=== PATIENT | female | born 1965 | race Caucasian/White ===

== ENCOUNTER 2017-08-27 08:10 | Outpatient (CLI) | payer OTHER ==
--- NOTE | 2017-08-27 11:49 | ULT ---
RENAL ULTRASOUND WITH DUPLEX EVALUATION: INDICATIONS: Chronic kidney disease and hypertension. FINDINGS: The right kidney measures 9.1 x 4.8 x 4.3 cm. The right renal cortex measures 1.1 cm. The right kid naty is diffusely echogenic. The left kidney measures 10.8 x 5.7 x 4.5 cm. The left renal cortex measures 1.7 cm. The left kidne y is diffusely echogenic. The peak systolic velocity in the right renal artery is 22.8 cm per second. The peak systolic veloci ty in the left renal artery is 29.4 cm per second. The peak systolic velocity in the aorta is 27.8 c m per second. The right renal artery to aorta ratio is 0.82. The left renal artery to aorta ratio is 1.06. The resistive index in the arcuate artery of the right kidney is 0.74 and the left is 0.70. The visualized bladder is normal appearing. IMPRESSION: 1. Increased echogenicity in both kidneys, which can be seen with acute medical renal disease. 2. No focal renal lesion or hydronephrosis. 3. No sonographic evidence of renal artery stenosis. POS: [facility]
--- NOTE | 2017-08-27 11:59 | ULT ---
ADDENDUM: Please see the renal ultrasound for details concerning the renal duplex evaluation. POS: [facility]
== END 2017-08-27 08:11 | disposition home or self-care (01) ==
LOC: ULT 08:10
PROVIDERS: ATTEND Internal Medicine Nephrology
DX: I12.9 Hypertensive chronic kidney disease with stage 1 through stage 4 chronic kidney disease, or unspecified chronic kidney disease (principal); N18.3 Chronic kidney disease, stage 3 (moderate)
CPT/HCPCS: 76700; 76770

== ENCOUNTER 2018-08-21 10:41 | Outpatient (CLI) | payer OTHER ==
--- NOTE | 2018-08-21 13:31 | ULT ---
BILATERAL UPPER EXTREMITY VENOUS DOPPLER ULTRASOUND FOR DIALYSIS ACCESS: Date: 08/20/18 HISTORY: End-stage renal disease. FINDINGS: RIGHT UPPER EXTREMITY: The right cephalic vein measures 2.6 mm in the proximal arm, 3.4 mm in the mid arm, 3.6 mm in the dis tasia arm, 3.0 mm in the antecubital fossa, 1.9 mm in the proximal forearm, 2.0 mm in the mid forearm, and 1.2 mm in the distal forearm. The right basilic vein measures 3.1 mm in the proximal arm, 3.7 mm in the mid arm, 2.5 mm in the dist al arm, 3.4 mm in the antecubital fossa, 1.2 mm in the proximal forearm, 0.8 mm in the mid forearm, a nd 0.6 mm in the distal forearm. The right brachial artery measures 4.9 mm, radial artery measures 2.5 mm, and ulnar artery measures 2 .2 mm. LEFT UPPER EXTREMITY: The left cephalic vein measures 4.5 mm in the proximal arm, 5.2 mm in the mid arm, 4.3 mm in the dist al arm, 5.7 mm in the antecubital fossa, 4.5 mm in the proximal forearm, 0.5 mm in the mid forearm, a nd 0.8 mm in the distal forearm. The left basilic vein measures 2.6 mm in the proximal arm, 1.9 mm in the mid arm, 1.7 mm in the dista l arm, 1.6 mm in the antecubital fossa, 1.7 mm in the proximal forearm, 1.2 mm in the mid forearm, an d 1.4 mm in the distal forearm. The left brachial artery measures 5.4 mm, radial artery measures 2.6 mm, and ulnar artery measures 2. [address] mm[address] POS: [facility]
== END 2018-08-21 10:42 | disposition home or self-care (01) ==
LOC: SCSULT 10:41
PROVIDERS: ATTEND Internal Medicine Nephrology
DX: Z01.818 Encounter for other preprocedural examination (principal); I12.0 Hypertensive chronic kidney disease with stage 5 chronic kidney disease or end stage renal disease; N18.5 Chronic kidney disease, stage 5
CPT/HCPCS: 93970; G0365

== ENCOUNTER 2018-09-04 11:56 | Outpatient (CLI) | payer OTHER ==
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
[2018-09-04 14:09] LABS: #Basophils 0.1 thou/uL (0.0-0.2); #Eosinphils 0.6 thou/uL (0.0-0.7); #Lymphocytes 1.9 thou/uL (1.20-3.40); #Monocytes 0.5 thou/uL (0.11-0.59); #Neutrophils 3.9 thou/uL (1.40-6.50); %Basophils 1.2 % (0.0-1.0); %Eosinophils 9.1 % (0.0-10.0); %Lymphocytes 26.7 % (21.0-51.0); %Monocytes 7.4 % (0.0-10.0); %Neutrophils 55.6 % (42.0-75.0); Hemoglobin 11.1 g/dL (12.0-16.0); Mean Corpuscular HGB CONC 33.9 g/dL (32.0-36.0); Mean Corpuscular Hemoglobin 32.4 pg (27.0-31.0); Mean Corpuscular Volume 95.5 fL (78.0-98.0); Mean Platelet Volume 7.1 fL (7.4-10.4); Platelet Count 150 thou/uL (130-400); RBC Distribution Width 12.2 % (11.5-14.5); Red Blood Cell (RBC) Count 3.43 mill/uL (4.20-5.40)
[2018-09-04 14:37] LABS: Anion Gap 12 mmol/L (10-20); BUN (Urea Nitrogen) 71 mg/dL (9.8-20.1); Calc. Creatinine Clearance 0 mL/min (70-130); Calcium 9.3 mg/dL (7.8-10.44); Carbon Dioxide 20 mmol/L (22-29); Chloride 111 mmol/L (98-107); Estimated GFR-MDRD 11; Glucose 94 mg/dL (70-105); Potassium 4.4 mmol/L (3.5-5.1); Sodium 139 mmol/L (136-145)
--- NOTE | 2018-09-04 21:30 | EKG ---
Test Reason : Blood Pressure : / mmHG Vent. Rate : 055 BPM Atrial Rate : 055 BPM P-R Int : 186 ms QRS Dur : 092 ms QT Int : 454 ms P-R-T Axes : 056 043 045 degrees QTc Int : 434 ms Sinus bradycardia with marked sinus arrhythmia Otherwise normal ECG No previous ECGs available Confirmed by DR. Braydon ECHEVARRIA MD ([id number]) on 09/04/2018 9:30:00 PM Referred By: NAUN Confirmed By:DR. Braydon ECHEVARRIA MD
== END 2018-09-04 11:57 | disposition home or self-care (01) ==
LOC: LABBT 11:56
PROVIDERS: ATTEND Specialist
DX: Z01.818 Encounter for other preprocedural examination (principal); K42.9 Umbilical hernia without obstruction or gangrene; N18.9 Chronic kidney disease, unspecified
CPT/HCPCS: 80048; 85025; 93005; 93010

== ENCOUNTER 2018-09-10 10:36 | Day surgery (SDC) | payer OTHER ==
[2018-09-04 12:20] VITALS: BMI 36.0
[2018-09-10] MEDS ORDERED: Ondansetron PF 4 MG/2 ML Vial ONE (13:58)
[2018-09-10] MEDS ORDERED: Dexamethasone 20 MG/5 ML VIAL ONE (13:58)
[2018-09-10] MEDS ORDERED: Glycopyrrolate 0.2 MG/ML 5 ML SYRINGE ONE (13:58)
[2018-09-10] MEDS ORDERED: Lidocaine 1% PF 5 ML VIAL ONE (13:58)
[2018-09-10] MEDS ORDERED: PROPOFOL 200 MG/20 ML VIAL ONE (13:58)
[2018-09-10] MEDS ORDERED: Rocuronium Bromide 10 MG/ML (10ML VIAL) ONE (13:58)
[2018-09-10] MEDS ORDERED: Heparin 10,000 UNITS/ 10 ML VIAL ONE (13:58)
[2018-09-10] MEDS ORDERED: Bupivacaine HCl 0.5%/Epinephrine 1:200,000/PF 30 ml Vial ONE (15:40)
[2018-09-10] MEDS ORDERED: Protamine Sulfate 250 MG/25 ML VIAL ONE (15:40)
[2018-09-10] MEDS ORDERED: Protamine Sulfate 50 MG/5 ML VIAL ONE (15:40)
[2018-09-10] MEDS ORDERED: Heparin 5,000 UNITS/ML VIAL ONE (15:40)
[2018-09-10] MEDS ORDERED: Bupivacaine/Epinephrine 0.25% 30 ML VIAL ONE ×2 (15:40→16:45)
[2018-09-10] MEDS ORDERED: Heparin 10,000 UNITS/1 ML VIAL ONE ×2 (15:40→16:45)
[2018-09-10] MEDS ORDERED: Lidocaine 2% PF 5 ML VIAL ONE (15:40)
[2018-09-10] MEDS ORDERED: Fentanyl 100 MCG/2 ML VIAL ONE (16:38)
[2018-09-10] MEDS ORDERED: hydrALAZINE 20 MG/ML VIAL ONE (18:52)
[2018-09-10] MEDS ORDERED: Promethazine HCl 25 MG/ML VIAL ONE (20:00)
[2018-09-10] MEDS ORDERED: HYDROcodone/Acetaminophen 5/325 mg Tablet ONE (20:31)
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
== END 2018-09-10 21:15 | disposition home or self-care (01) ==
LOC: SDC 10:36
PROVIDERS: ATTEND Specialist
PROC: 0WQF0ZZ Repair Abdominal Wall, Open Approach (ICD-10-PCS; principal; 2018-09-10)
PROC: 0XJ Anatomical Regions, Upper Extremities, Inspection (ICD-10-PCS; principal; 2018-09-10)
PROC: 0WHG43Z Insertion of Infusion Device into Peritoneal Cavity, Percutaneous Endoscopic Approach (ICD-10-PCS; principal; 2018-09-10)
DX: I12.9 Hypertensive chronic kidney disease with stage 1 through stage 4 chronic kidney disease, or unspecified chronic kidney disease (principal); N18.9 Chronic kidney disease, unspecified; K43.2 Incisional hernia without obstruction or gangrene; Z79.899 Other long term (current) drug therapy; Z88.2 Allergy status to sulfonamides
CPT/HCPCS: J0131; J0360; J0670; J1100; J1644; J2001; J2405; J2550; J2704; J2720; J3010

== ENCOUNTER 2018-10-16 09:13 | Day surgery (SDC) | payer OTHER ==
[2018-10-15 16:43] VITALS: BMI 38.5
[2018-10-16] MEDS ORDERED: Bupivacaine/Epinephrine 0.25% 30 ML VIAL ONE (10:28)
[2018-10-16] MEDS ORDERED: Lidocaine 2% PF 5 ML VIAL ONE (10:28)
[2018-10-16] MEDS ORDERED: Heparin 10,000 UNITS/1 ML VIAL ONE (10:28)
[2018-10-16] MEDS ORDERED: Bupivacaine HCl 0.5%/Epinephrine 1:200,000/PF 30 ml Vial ONE (10:28)
[2018-10-16 10:53] LABS: #Basophils 0.1 thou/uL (0.0-0.2); #Eosinphils 0.4 thou/uL (0.0-0.7); #Lymphocytes 1.4 thou/uL (1.20-3.40); #Monocytes 0.5 thou/uL (0.11-0.59); #Neutrophils 3.2 thou/uL (1.40-6.50); %Basophils 1.4 % (0.0-1.0); %Eosinophils 7.4 % (0.0-10.0); %Lymphocytes 25.8 % (21.0-51.0); %Monocytes 8.3 % (0.0-10.0); %Neutrophils 57.2 % (42.0-75.0); Hemoglobin 11.2 g/dL (12.0-16.0); Mean Corpuscular HGB CONC 35.2 g/dL (32.0-36.0); Mean Corpuscular Hemoglobin 33.3 pg (27.0-31.0); Mean Corpuscular Volume 94.5 fL (78.0-98.0); Mean Platelet Volume 7.2 fL (7.4-10.4); Platelet Count 143 thou/uL (130-400); RBC Distribution Width 12.4 % (11.5-14.5); Red Blood Cell (RBC) Count 3.36 mill/uL (4.20-5.40); White Blood Cell (WBC) Count 5.6 thou/uL (4.8-10.8)
[2018-10-16 11:15] LABS: Anion Gap 17 mmol/L (10-20); BUN (Urea Nitrogen) 92 mg/dL (9.8-20.1); Calc. Creatinine Clearance 23 mL/min (70-130); Calcium 9.4 mg/dL (7.8-10.44); Carbon Dioxide 21 mmol/L (22-29); Chloride 107 mmol/L (98-107); Estimated GFR-MDRD 9; Glucose 103 mg/dL (70-105); Potassium 3.7 mmol/L (3.5-5.1); Sodium 141 mmol/L (136-145)
[2018-10-16] MEDS ORDERED: Fentanyl 100 MCG/2 ML VIAL ONE ×3 (11:51→13:46)
[2018-10-16] MEDS ORDERED: SUGAMMADEX SODIUM 500 MG/5 ML VIAL ONE (12:50)
[2018-10-16] MEDS ORDERED: Acetaminophen/Codeine 30-300mg Tablet ONE (14:52)
--- NOTE | 2018-10-16 15:05 | OP ---
DATE OF PROCEDURE: 10/16/2018 PREOPERATIVE DIAGNOSES: End-stage renal disease, maturing left arm fistula, cephalic vein upper, obesity, dysfunctional peritoneal dialysis catheter with extensive adhesions from prior surgery, dysfunctional peritoneal dialysis catheter. POSTOPERATIVE DIAGNOSES: End-stage renal disease, maturing left arm fistula, cephalic vein upper, obesity, dysfunctional peritoneal dialysis catheter with extensive adhesions from prior surgery, dysfunctional peritoneal dialysis catheter. PROCEDURE PERFORMED: Laparoscopic evaluation of peritoneal dialysis catheter with revision of peritoneal dialysis catheter laparoscopically with pexy of peritoneal dialysis catheter in the right lower quadrant. ANESTHESIA: General, local 0.5% Marcaine with epinephrine 30 mL with 2% Xylocaine 10 mL, 30 mL mixture used. FINDINGS: The patient had extensive adhesions as was noted when the peritoneal dialysis catheter was placed. PD catheter is surrounded by extensive small bowel and colon adhesions, upper abdominal extensive adhesions. I had to negotiate adhesions in the omentum to visualize the right lower quadrant as I did before. The PD catheter was caught up into some fatty tissue. It was relocated and pexied, but if further problems occur and it does not function, it will have to be removed and she will have to move to hemodialysis. DESCRIPTION OF PROCEDURE: The patient was taken to the operating room, where under general anesthesia, abdomen was clipped of hair, prepared with ChloraPrep and draped in routine fashion. Left lateral subcostal incision made through the old port site and pneumoperitoneum to 15 mmHg obtained with a Veress needle, replaced with a 5 port laparoscope inserted. There were extensive omental adhesions. I was able to negotiate through these to visualize an opening in the right lower quadrant as I did before. The PD catheter had loculated out laterally. There were extensive omental and small bowel adhesions to the abdominal wall and these were not taken down. An open area in the right lower quadrant, under direct laparoscopic visualization, another incision made and a 5 port placed and PD catheter brought out of its loculated fatty collection in the right lateral pelvis upper and placed into the pelvis, and then transabdominal wall fixation suture used to pexy the catheter toward the right pelvis. The left pelvis was frozen with adhesions. I then flushed the catheter with heparinized saline solution and flushed well. Pneumoperitoneum reduced. All instruments were removed. All skin incisions were approximated with subdermal 4-0 Monocryl and [place] glue applied. If this catheter does not function well, it will have to be removed, and the patient will have to move towards hemodialysis. Job ID: [id number]
[2018-10-16] MEDS ORDERED: Ondansetron PF 4 MG/2 ML Vial ONE (16:42)
[2018-10-16] MEDS ORDERED: Metoprolol Tartrate 5 MG/5 ML VIAL ONE (16:42)
[2018-10-16] MEDS ORDERED: Rocuronium Bromide 10 MG/ML (10ML VIAL) ONE (16:42)
[2018-10-16] MEDS ORDERED: Glycopyrrolate 0.2 MG/ML 5 ML SYRINGE ONE (16:42)
[2018-10-16] MEDS ORDERED: Lidocaine 1% PF 5 ML VIAL ONE (16:42)
[2018-10-16] MEDS ORDERED: Dexamethasone 20 MG/5 ML VIAL ONE (16:42)
[2018-10-16] MEDS ORDERED: PROPOFOL 200 MG/20 ML VIAL ONE (16:42)
== END 2018-10-16 15:15 | disposition home or self-care (01) ==
LOC: SDC 09:13
PROVIDERS: ATTEND Specialist
PROC: 0JWT33Z Revision of Infusion Device in Trunk Subcutaneous Tissue and Fascia, Percutaneous Approach (ICD-10-PCS; principal; 2018-10-16)
DX: T85.691A Other mechanical complication of intraperitoneal dialysis catheter, initial encounter (principal); I12.0 Hypertensive chronic kidney disease with stage 5 chronic kidney disease or end stage renal disease; N18.6 End stage renal disease; K66.0 Peritoneal adhesions (postprocedural) (postinfection); E66.9 Obesity, unspecified; Z68.38 Body mass index [BMI] 38.0-38.9, adult; Z99.2 Dependence on renal dialysis; Z91.048 Other nonmedicinal substance allergy status; Z88.2 Allergy status to sulfonamides; Z79.899 Other long term (current) drug therapy
CPT/HCPCS: 36415; 80048; 85025; C1769; J0670; J0690; J1100; J1644; J2001; J2405; J2704; J3010

== ENCOUNTER 2019-03-11 13:32 | Inpatient (IN) | payer OTHER, MEDICARE ==
[2019-03-11] MEDS ORDERED: Cefepime 1 GM VIAL ONE (14:49)
[2019-03-11] MEDS ORDERED: Vancomycin HCl 1.5 GM in Sodium Chloride 0.9% 250 ML 300 ML IVPB SCH ×2 (15:00→21:45)
[2019-03-11 15:22] LABS: Lactic Acid 2.7 mmol/L (0.5-2.2)
--- NOTE | 2019-03-11 15:46 | RAD ---
PA AND LATERAL CHEST: 03/11/19 HISTORY: Cough and fever. Heart size and mediastinum are within normal limits. The lungs are clear of infiltrates. No significa nt bony findings. IMPRESSION: No active intrathoracic disease. POS: [facility]
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
[2019-03-11] MEDS ORDERED: Aluminum & Magnesium Hydroxide 60 ML, Lidocaine 2% Viscous Solution 30 ML, diphenhydrAM... SSW PRN (18:09)
[2019-03-11] MEDS ORDERED: HYDROcodone/Acetaminophen 5/325 mg Tablet PO PRN (18:12)
[2019-03-11] MEDS ORDERED: Ondansetron PF 4 MG/2 ML Vial IVP PRN (18:12)
[2019-03-11] MEDS ORDERED: Acetaminophen 650 MG Suppository PR PRN (18:12)
[2019-03-11] MEDS ORDERED: Acetaminophen 325 MG TAB PO PRN (18:12)
[2019-03-11] MEDS ORDERED: Ondansetron ODT 4 MG TAB PO PRN (18:12)
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
[2019-03-11] MEDS ORDERED: Benzonatate 100 MG CAP PO SCH (18:45)
[2019-03-11] MEDS ORDERED: FLU VACC QS2019-20(6MOS UP)/PF 60 MCG/0.5 ML SYRINGE IM ONE (19:00)
[2019-03-11] MEDS: Cepastat Lozenges 1 LOZ PO PRN (20:47)
[2019-03-11] MEDS: Benzonatate 100 MG CAP PO SCH (20:47)
[2019-03-11] MEDS: Famotidine/PF 20 mg/2ml Vial SLOW IVP SCH (20:48)
[2019-03-11 20:52] VITALS: BMI 36.5
[2019-03-11] MEDS ORDERED: HOLD VANCOMYCIN FOR LEVEL >20 FS SCH (21:45)
[2019-03-11] MEDS ORDERED: Vancomycin HCl 1 GM in Premix Bag 1 BAG IVPB SCH (21:45)
[2019-03-11] MEDS ORDERED: Vancomycin HCl 1.25 GM in Sodium Chloride 0.9% 250 ML 250 ML IVPB SCH (21:45)
[2019-03-11] MEDS ORDERED: Vancomycin HCl 750 MG in Sodium Chloride 0.9% 250 ML 250 ML IVPB SCH (21:45)
[2019-03-12 06:43] LABS: Anion Gap 9 mmol/L (10-20); BUN (Urea Nitrogen) 30 mg/dL (9.8-20.1); Calc. Creatinine Clearance 33 mL/min (70-130); Calcium 7.9 mg/dL (7.8-10.44); Carbon Dioxide 28 mmol/L (22-29); Chloride 105 mmol/L (98-107); Estimated GFR-MDRD 14; Glucose 91 mg/dL (70-105); Potassium 3.4 mmol/L (3.5-5.1); Sodium 139 mmol/L (136-145)
[2019-03-12 06:49] LABS: #Eosinphils 0.2 thou/uL (0.0-0.7); #Lymphocytes 3.1 thou/uL (1.20-3.40); #Monocytes 0.8 thou/uL (0.11-0.59); #Neutrophils 2.2 thou/uL (1.40-6.50); %Basophils 0.2 % (0.0-1.0); %Eosinophils 2.8 % (0.0-10.0); %Lymphocytes 49.2 % (21.0-51.0); %Monocytes 12.1 % (0.0-10.0); %Neutrophils 35.7 % (42.0-75.0); Hemoglobin 10.1 g/dL (12.0-16.0); Mean Corpuscular HGB CONC 34.7 g/dL (32.0-36.0); Mean Corpuscular Hemoglobin 33.2 pg (27.0-31.0); Mean Corpuscular Volume 95.8 fL (78.0-98.0); Mean Platelet Volume 6.4 fL (7.4-10.4); Platelet Count 109 thou/uL (130-400); Platelet Morphology Comment Appears Decreased; RBC Distribution Width 13.2 % (11.5-14.5); Red Blood Cell (RBC) Count 3.05 mill/uL (4.20-5.40); White Blood Cell (WBC) Count 6.3 thou/uL (4.8-10.8)
[2019-03-12] MEDS: Benzonatate 100 MG CAP PO SCH ×3 (08:40→20:43)
--- NOTE | 2019-03-12 09:27 | PDOC.HOSPP ---
- Subjective Encounter Date: 03/12/19 Encounter Time: 09:26 Subjective: generalized abd discomfort, no nausea, vomiting - Objective Vital Signs & Weight: Vital Signs (12 hours) Temp Pulse Resp BP Pulse Ox 03/12/19 07:14 80 16 96 03/12/19 05:34 98.1 F 89 19 156/89 H 98 03/12/19 01:37 84 16 95 03/11/19 23:55 97.6 F 84 19 96/55 L 95 03/11/19 22:03 80 16 95 Weight Weight 240 lb I&O: 03/11/19 03/12/19 03/13/19 06:59 06:59 06:59 Intake Total 510 Balance 510 Result Diagrams: 03/12/19 06:04 03/12/19 06:04 Hospitalist ROS - Medication Medications: Active Medications Generic Name Dose Route Start Last Admin Trade Name Freq PRN Reason Stop Dose Admin Acetaminophen 650 mg 03/11/19 18:12 03/11/19 20:47 Tylenol PO 650 mg Q4H PRN Administration Headache/Fever/Mild Pain (1-3) Albuterol/Ipratropium 3 ml 03/11/19 18:30 03/12/19 07:14 Duoneb NEB 3 ml [id number] [place] Administration Benzonatate 100 mg 03/11/19 21:00 03/12/19 08:40 Tessalon PO 100 mg TID [place] Administration Famotidine 20 mg 03/11/19 21:00 03/11/19 20:48 Pepcid SLOW IVP 20 mg 2100 [place] Administration Throat Lozenges 1 naa 03/11/19 18:09 03/11/19 20:47 Cepastat Lozenges PO 1 naa Q2H PRN Administration Sore Throat - Exam Eye: anicteric sclera Neck: no JVD Heart: RRR, no murmur Respiratory: CTAB Gastrointestinal: normal bowel sounds, tender to palpation Extremities: no edema Hosp A/P (1) SBP (spontaneous bacterial peritonitis) Code(s): K65.2 - SPONTANEOUS BACTERIAL PERITONITIS Status: Acute (2) Sepsis Code(s): A41.9 - SEPSIS, UNSPECIFIED ORGANISM Status: Acute Qualifiers: Sepsis type: Streptococcus, unspecified Sepsis acute organ dysfunction status: without acute organ dysfunction Qualified Code(s): A40.9 - Streptococcal sepsis, unspecified (3) Lactic acidosis Code(s): E87.2 - ACIDOSIS Status: Acute (4) Abdominal pain Code(s): R10.9 - UNSPECIFIED ABDOMINAL PAIN Status: Acute Qualifiers: Abdominal location: generalized Qualified Code(s): R10.84 - Generalized abdominal pain (5) ESRD on peritoneal dialysis Code(s): N18.6 - END STAGE RENAL DISEASE; Z99.2 - DEPENDENCE ON RENAL DIALYSIS Status: Chronic (6) Hypertension Code(s): I10 - ESSENTIAL (PRIMARY) HYPERTENSION Status: Chronic - Plan dialysis per renal cont iv antibx pending culture selected home meds ddiscuss with renal
[2019-03-12] MEDS ORDERED: Calcitriol 0.25 MCG CAP PO SCH (09:30)
[2019-03-12] MEDS: Cepastat Lozenges 1 LOZ PO PRN (10:05)
--- NOTE | 2019-03-12 11:39 | PRG ---
DATE OF SERVICE: 03/12/2019 SUBJECTIVE: This is a 53-year-old lady, being seen for end-stage renal disease. The patient denied nausea, vomiting, or chest pain. OBJECTIVE: GENERAL: The patient is awake and alert. VITAL SIGNS: Pulse 99, breathing 16, blood pressure 156/89. GENERAL APPEARANCE AND MENTAL STATUS: Fair. HEAD/NECK: Normocephalic. Atraumatic. EYES: EOMI. No deformity. EARS: Clear. No ulcers. NOSE: Intact. No lesions. MOUTH: Clear. No discharge. THROAT: Clear. No exudate. LUNGS: Clear. No crackles. CARDIAC: S1, S2. No rub. ABDOMEN: Benign. Bowel sounds positive. GENITALIA/RECTUM: Bower absent. BACK/EXTREMITIES: Edema 0+. NEUROLOGICAL: Alert and motor intact. SKIN: LYMPHATICS: LABORATORY DATA: Reviewed. ASSESSMENT AND PLAN: 1. Stage 6 chronic kidney disease. Continue peritoneal dialysis. 2. Hypertension. 3. Anemia, stable. 4. Peritonitis, cultures are pending. Job ID: [id number]
[2019-03-12] MEDS: Cefepime 0.5 GM, Admixture Fee 1 EACH in Sodium Chloride 0.9% 50 ML IVPB SCH (16:08)
[2019-03-12] MEDS: Guaifenesin DM 100-10/5 ML UDCUP PO PRN ×2 (16:35→23:48)
[2019-03-12] MEDS ORDERED: Prevnar 13-Val Conj/PF 0.5 ML SYRINGE IM ONE (17:00)
[2019-03-12] MEDS: cloNIDine 0.1 MG TAB PO SCH (20:42)
[2019-03-12] MEDS: Carvedilol 6.25 MG TAB PO SCH (20:42)
[2019-03-12] MEDS: Famotidine/PF 20 mg/2ml Vial SLOW IVP SCH (20:43)
[2019-03-12] MEDS ORDERED: ISOSORB DINIT PO SCH (21:00)
[2019-03-12] MEDS ORDERED: HYDRALAZINE HCL PO SCH (21:00)
[2019-03-12] MEDS ORDERED: Non-Formulary Item 1 EACH (Isosorb Dinit/Hydralazine Hcl [Bidil] 1 TABLET) PO SCH (21:00)
[2019-03-12] MEDS ORDERED: Non-Formulary Item 1 EACH (Carvedilol [Carvedilol] 12.5 MG) PO SCH (21:00)
[2019-03-13] MEDS: Folic Acid/Vit B Comp W-C PO SCH (06:52)
[2019-03-13] MEDS ORDERED: Folic Acid/Vit B Comp W-C PO SCH (07:30)
[2019-03-13] MEDS ORDERED: Calcitriol 0.25 MCG CAP PO SCH (09:00)
[2019-03-13] MEDS: Benzonatate 100 MG CAP PO SCH ×3 (09:12→21:27)
[2019-03-13] MEDS: cloNIDine 0.1 MG TAB PO SCH ×2 (09:13→21:36)
[2019-03-13] MEDS: Torsemide 20 MG TAB PO SCH (09:15)
[2019-03-13] MEDS: Citalopram 20 MG TAB PO SCH (09:15)
[2019-03-13] MEDS: Carvedilol 6.25 MG TAB PO SCH ×2 (09:17→21:36)
--- NOTE | 2019-03-13 11:04 | PRG ---
DATE OF SERVICE: 03/13/2019 SUBJECTIVE: A 53-year-old female being seen for end-stage renal disease. The patient denied nausea, vomiting or chest pain. OBJECTIVE: See above. The patient is awake and alert. VITAL SIGNS: Afebrile, pulse 68, breathing 16, blood pressure 147/95. GENERAL APPEARANCE AND MENTAL STATUS: Fair. HEAD/NECK: Normocephalic. Atraumatic. EYES: EOMI. No deformity. EARS: Clear. No ulcers. NOSE: Intact. No lesions. MOUTH: Clear. No discharge. THROAT: Clear. No exudate. LUNGS: Clear. No crackles. CARDIAC: S1, S2. No rub. ABDOMEN: Benign. Bowel sounds positive. GENITALIA/RECTUM: Bower absent. BACK/EXTREMITIES: Edema 0+. NEUROLOGICAL: Alert and motor intact. SKIN: LYMPHATICS: LABORATORY DATA: Reviewed. ASSESSMENT AND PLAN: 1. Stage 6 chronic kidney disease. Continue peritoneal dialysis. 2. Hypertension, stable. 3. Anemia, stable. 4. Medication based on GFR appropriate. Job ID: [id number]
--- NOTE | 2019-03-13 11:40 | PDOC.HOSPP ---
- Subjective Encounter Date: 03/13/19 Encounter Time: 11:39 Subjective: 53 y/o female with ESRD on PD admitted due to worsening abdominal pain associated with fever and generalised ill feeling. Also has been having cough for some time prior to presentation.Feeling better. Cough has subsided. - Objective Vital Signs & Weight: Vital Signs (12 hours) Temp Pulse Resp BP BP BP Pulse Ox 03/13/19 10:42 68 14 99 03/13/19 09:17 147/95 H 03/13/19 09:13 147/95 H 03/13/19 08:00 97.7 F 68 18 142/86 H 99 03/13/19 07:21 75 16 98 03/13/19 04:00 98.2 F 74 20 130/80 97 03/13/19 00:00 98.4 F 81 20 135/87 97 Weight Weight 240 lb I&O: 03/12/19 03/13/19 03/14/19 06:59 06:59 06:59 Intake Total 510 240 Balance 510 240 Result Diagrams: 03/12/19 06:04 03/12/19 06:04 Hospitalist ROS - Medication Medications: Active Medications Generic Name Dose Route Start Last Admin Trade Name Freq PRN Reason Stop Dose Admin Acetaminophen 650 mg 03/11/19 18:12 03/11/19 20:47 Tylenol PO 650 mg Q4H PRN Administration Headache/Fever/Mild Pain (1-3) Albuterol/Ipratropium 3 ml 03/11/19 18:30 03/13/19 10:42 Duoneb NEB 3 ml [id number] [place] Administration Benzonatate 100 mg 03/11/19 21:00 03/13/19 09:12 Tessalon PO 100 mg TID [place] Administration Calcitriol 0.25 mcg 03/13/19 09:00 03/13/19 09:13 Rocaltrol PO 0.25 mcg [id number] [place] Administration Carvedilol 12.5 mg 03/12/19 21:00 03/13/19 09:17 Coreg PO 12.5 mg BID [place] Administration Citalopram Hydrobromide 20 mg 03/13/19 09:00 03/13/19 09:15 Celexa PO 20 mg DAILY [place] Administration Clonidine 0.1 mg 03/12/19 21:00 03/13/19 09:13 Catapres PO 0.1 mg BID [place] Administration Famotidine 20 mg 03/11/19 21:00 03/12/19 20:43 Pepcid SLOW IVP 20 mg 2100 [place] Administration Guaifenesin/Dextromethorphan 15 ml 03/11/19 18:12 03/12/19 23:48 Robitussin Dm PO 15 ml Q4H PRN Administration Cough Cefepime HCl 0.5 gm/ 50 mls @ 100 mls/hr 03/12/19 15:00 03/12/19 16:08 Miscellaneous Medication 1 IVPB 50 mls each/ Sodium Chloride 1500 [place] Administration Throat Lozenges 1 naa 03/11/19 18:09 03/12/19 10:05 Cepastat Lozenges PO 1 naa Q2H PRN Administration Sore Throat Torsemide 40 mg 03/13/19 09:00 03/13/19 09:15 Demadex PO 40 mg DAILY [place] Administration Vitamin B Complex/Vit C/Folic Acid 1 tab 03/13/19 07:30 03/13/19 06:52 Nephro-Hiro Tablet PO 1 tab DAILY-AC [place] Administration - Exam General Appearance: awake alert Eye: anicteric sclera ENT: normocephalic atraumatic Neck: supple, symmetric Heart: RRR, no murmur Respiratory: CTAB, no wheezes, no rales, no ronchi, normal chest expansion Gastrointestinal: soft, non-distended, normal bowel sounds Extremities: no cyanosis, no edema Neurological: cranial nerve grossly intact, no focal deficits Psychiatric: normal affect, A&O x 3 Hosp A/P (1) Peritonitis associated with peritoneal dialysis Status: Acute (2) Abdominal pain Code(s): R10.9 - UNSPECIFIED ABDOMINAL PAIN Status: Acute Qualifiers: Abdominal location: generalized Qualified Code(s): R10.84 - Generalized abdominal pain (3) Cough Code(s): R05 - COUGH Status: Acute (4) Sepsis Code(s): A41.9 - SEPSIS, UNSPECIFIED ORGANISM Status: Acute Qualifiers: Sepsis type: Streptococcus, unspecified Sepsis acute organ dysfunction status: without acute organ dysfunction Qualified Code(s): A40.9 - Streptococcal sepsis, unspecified (5) ESRD on peritoneal dialysis Code(s): N18.6 - END STAGE RENAL DISEASE; Z99.2 - DEPENDENCE ON RENAL DIALYSIS Status: Chronic - Plan Continue broad spectrum antibiotics await peritneal fluid culture Analgesic as needed. PD as per reducing machine operator
[2019-03-13] MEDS ORDERED: Heparin 10,000 UNITS/ 10 ML VIAL FS SCH (11:45)
[2019-03-13] MEDS ORDERED: Isosorbide Dinitrate 20 MG TAB PO SCH (12:00)
[2019-03-13] MEDS ORDERED: hydrALAZINE 25 MG TAB PO SCH (12:00)
[2019-03-13] MEDS: Cefepime 0.5 GM, Admixture Fee 1 EACH in Sodium Chloride 0.9% 50 ML IVPB SCH (14:30)
[2019-03-13 15:24] LABS: Vancomycin, Random 14.5 ug/mL (See Comment)
[2019-03-13] MEDS: Famotidine/PF 20 mg/2ml Vial SLOW IVP SCH (21:29)
[2019-03-13] MEDS: hydrALAZINE 25 MG TAB PO SCH (21:37)
[2019-03-13] MEDS: Isosorbide Dinitrate 20 MG TAB PO SCH (21:37)
[2019-03-14] MEDS: Gentamicin TOPICAL Ointment 0.1% 15 gm Tube TOP SCH ×2 (02:03→21:30)
[2019-03-14] MEDS: Folic Acid/Vit B Comp W-C PO SCH (06:46)
[2019-03-14 07:59] LABS: Albumin 2.8 g/dL (3.5-5.0); Anion Gap 12 mmol/L (10-20); BUN (Urea Nitrogen) 24 mg/dL (9.8-20.1); BUN/Creatinine Ratio 7.02; Calc. Creatinine Clearance 32 mL/min (70-130); Calcium 7.7 mg/dL (7.8-10.44); Carbon Dioxide 26 mmol/L (22-29); Chloride 102 mmol/L (98-107); Estimated GFR-MDRD 14; Glucose 99 mg/dL (70-105); Phosphorus 3.7 mg/dL (2.3-4.7); Potassium 3.5 mmol/L (3.5-5.1); Sodium 136 mmol/L (136-145)
[2019-03-14 08:09] LABS: Eosinophils 3 % (0-10); Hemoglobin 9.9 g/dL (12.0-16.0); Lymphocytes 64 % (21-51); MDiff Complete? YES; Mean Corpuscular HGB CONC 34.4 g/dL (32.0-36.0); Mean Corpuscular Volume 93.2 fL (78.0-98.0); Mean Platelet Volume 5.9 fL (7.4-10.4); Monocytes 8 % (0-10); Neutrophil 25 % (42-75); Platelet Count 130 thou/uL (130-400); RBC Distribution Width 12.9 % (11.5-14.5); Red Blood Cell (RBC) Count 3.09 mill/uL (4.20-5.40); White Blood Cell (WBC) Count 5.7 thou/uL (4.8-10.8)
[2019-03-14] MEDS: Carvedilol 6.25 MG TAB PO SCH ×2 (08:31→21:34)
[2019-03-14] MEDS: cloNIDine 0.1 MG TAB PO SCH ×2 (08:31→21:32)
[2019-03-14] MEDS: Benzonatate 100 MG CAP PO SCH ×3 (08:31→21:31)
[2019-03-14] MEDS: Isosorbide Dinitrate 20 MG TAB PO SCH ×2 (08:32→21:33)
[2019-03-14] MEDS: hydrALAZINE 25 MG TAB PO SCH ×2 (08:32→21:32)
[2019-03-14] MEDS: Citalopram 20 MG TAB PO SCH (08:32)
[2019-03-14] MEDS: Guaifenesin DM 100-10/5 ML UDCUP PO PRN ×2 (08:35→16:32)
[2019-03-14] MEDS: Torsemide 20 MG TAB PO SCH (11:08)
--- NOTE | 2019-03-14 11:44 | PRG ---
DATE OF SERVICE: 03/14/2019 SUBJECTIVE: This is a 53-year-old female being seen for end-stage renal disease. The patient denied nausea, vomiting, or chest pain. OBJECTIVE: See above. The patient is awake and alert, in no acute distress. VITAL SIGNS: Pulse 84, breathing 16, blood pressure 130/70. GENERAL APPEARANCE AND MENTAL STATUS: Fair. HEAD/NECK: Normocephalic. Atraumatic. EYES: EOMI. No deformity. EARS: Clear. No ulcers. NOSE: Intact. No lesions. MOUTH: Clear. No discharge. THROAT: Clear. No exudate. LUNGS: Clear. No crackles. CARDIAC: S1, S2. No rub. ABDOMEN: Benign. Bowel sounds positive. GENITALIA/RECTUM: Bower absent. BACK/EXTREMITIES: Edema 0+. NEUROLOGICAL: Alert and motor intact. SKIN: LYMPHATICS: LABORATORY DATA: Labs reviewed. ASSESSMENT AND PLAN: 1. Stage 6 chronic kidney disease. Continue peritoneal dialysis. 2. Hypertension, stable. 3. Anemia, stable. 4. Peritonitis, probably Pasteurella. I would recommend ID consultation. Job ID: [id number]
[2019-03-14] MEDS ORDERED: Amoxicillin/Potassium Clav 250 MG TAB PO SCH ×2 (12:00→23:00)
[2019-03-14] MEDS: Cefepime 0.5 GM, Admixture Fee 1 EACH in Sodium Chloride 0.9% 50 ML IVPB SCH (17:11)
[2019-03-14] MEDS ORDERED: Heparin 1,000 UNITS/ML (10 ml) 6,000 UNITS in PERITON.DIALYSIS 7-2.5 % DEXTR 6,000 ML FS SCH (18:15)
--- NOTE | 2019-03-14 21:12 | PDOC.HOSPP ---
- Subjective Encounter Date: 03/14/19 Encounter Time: 21:00 Subjective: The patient continues to complain of a dry cough. She states that robitussin may have helped some, but cough occurs in any position. She feels tickling sensation in her throat and scratchy feeling. No abdominal pain. She has had no relief with breathing treatment and wants them discontinued Her abdominal pain has now resolved with antibiotics. She plans on having her dogs sleep outside and maybe getting rid of one of her pets. - Objective Vital Signs & Weight: Vital Signs (12 hours) Temp Pulse Resp BP Pulse Ox 03/14/19 20:00 98.8 F 78 18 146/91 H 97 03/14/19 18:49 86 16 98 03/14/19 14:32 79 16 97 03/14/19 10:31 84 16 96 Weight Weight 240 lb I&O: 03/13/19 03/14/19 03/15/19 06:59 06:59 06:59 Intake Total 1080 1080 Balance 1080 1080 Result Diagrams: 03/14/19 07:20 03/14/19 07:20 Hospitalist ROS - Review of Systems Constitutional: denies: chills, sweats Respiratory: denies: shortness of breath Cardiovascular: denies: chest pain, palpitations Gastrointestinal: denies: vomiting - Medication Medications: Active Medications Generic Name Dose Route Start Last Admin Trade Name Freq PRN Reason Stop Dose Admin Acetaminophen 650 mg 03/11/19 18:12 03/11/19 20:47 Tylenol PO 650 mg Q4H PRN Administration Headache/Fever/Mild Pain (1-3) Benzonatate 100 mg 03/11/19 21:00 03/14/19 16:29 Tessalon PO 100 mg TID [place] Administration Calcitriol 0.25 mcg 03/13/19 09:00 03/13/19 09:13 Rocaltrol PO 0.25 mcg [id number] [place] Administration Carvedilol 12.5 mg 03/12/19 21:00 03/14/19 08:31 Coreg PO 12.5 mg BID [place] Administration Citalopram Hydrobromide 20 mg 03/13/19 09:00 03/14/19 08:32 Celexa PO 20 mg DAILY [place] Administration Clonidine 0.1 mg 03/12/19 21:00 03/14/19 08:31 Catapres PO 0.1 mg BID [place] Administration Hydralazine HCl 37.5 mg 03/13/19 21:00 03/14/19 08:32 Apresoline PO 37.5 mg BID [place] Administration Isosorbide Dinitrate 20 mg 03/13/19 21:00 03/14/19 08:32 Isordil PO 20 mg BID [place] Administration Sodium Chloride 10 ml 03/11/19 18:12 03/14/19 08:33 Flush - Normal Saline IVF 10 ml Q12HR PRN Administration Saline Flush Throat Lozenges 1 naa 03/11/19 18:09 03/12/19 10:05 Cepastat Lozenges PO 1 naa Q2H PRN Administration Sore Throat Torsemide 40 mg 03/13/19 09:00 03/14/19 11:08 Demadex PO Not Given DAILY [place] Vitamin B Complex/Vit C/Folic Acid 1 tab 03/13/19 07:30 03/14/19 06:46 Nephro-Hiro Tablet PO 1 tab DAILY-AC [place] Administration - Exam Eye: PERRL, anicteric sclera ENT: normocephalic atraumatic, no oropharyngeal lesions Neck: no JVD Heart: RRR, no murmur, no gallops Respiratory: CTAB, no wheezes, no rales Gastrointestinal: soft, non-tender, non-distended Gastrointestinal - other findings: Peritoneal catheter dialyisis in place, no purulence noted Extremities: no cyanosis, no clubbing, no edema Skin: normal turgor, no lesions, no rashes Neurological: cranial nerve grossly intact, normal sensation to touch, no weakness, no focal deficits, no new deficit Musculoskeletal: normal tone, normal strength Hosp A/P - Plan This is a 53 year old female on peritoneal dialysis secondary to longstanding hypertension presenting with fevers, dry cough, found to have pasteurella in peritoneal dialysis catheter Sepsis secondary to SBP from Pasteurella multicoda -was on vanc, cefepime for two days, now switching to augmentin D1 03/13. Will continue for two weeks on discharge. - patient told to avoid doing peritoneal dialysis near her pets Hypertension - continue clonidine, imdur, coreg, torsemide Chronic anemia - Hb 9.9, continue B12, folate, nephro outpatient follow up Dry cough - chest X ray unremarkable - will d/c famotidine, dry omeprazole and tums prn - d/c breathing treatments and mucinex since no relief Code status: full code
[2019-03-14] MEDS: Famotidine/PF 20 mg/2ml Vial SLOW IVP SCH (21:17)
[2019-03-14] MEDS ORDERED: Isosorbide Dinitrate 20 MG TAB PO SCH (21:45)
[2019-03-14] MEDS ORDERED: hydrALAZINE 25 MG TAB PO SCH (21:45)
[2019-03-14] MEDS: Calcium Carbonate 500 MG ChewTAB PO PRN (23:16)
[2019-03-15] MEDS: Folic Acid/Vit B Comp W-C PO SCH (06:42)
[2019-03-15] MEDS: Calcium Carbonate 500 MG ChewTAB PO PRN (06:45)
[2019-03-15 07:18] VITALS: TEMP 98.3
[2019-03-15 07:37] LABS: Hemoglobin 10.5 g/dL (12.0-16.0); Mean Corpuscular HGB CONC 34.3 g/dL (32.0-36.0); Mean Corpuscular Volume 96.4 fL (78.0-98.0); Mean Platelet Volume 5.8 fL (7.4-10.4); Platelet Count 128 thou/uL (130-400); Red Blood Cell (RBC) Count 3.18 mill/uL (4.20-5.40); White Blood Cell (WBC) Count 5.6 thou/uL (4.8-10.8)
[2019-03-15 07:51] LABS: Anion Gap 12 mmol/L (10-20); BUN (Urea Nitrogen) 23 mg/dL (9.8-20.1); Calc. Creatinine Clearance 30 mL/min (70-130); Calcium 8.3 mg/dL (7.8-10.44); Carbon Dioxide 25 mmol/L (22-29); Chloride 105 mmol/L (98-107); Estimated GFR-MDRD 13; Glucose 103 mg/dL (70-105); Potassium 3.7 mmol/L (3.5-5.1); Sodium 138 mmol/L (136-145)
[2019-03-15] MEDS: Benzonatate 100 MG CAP PO SCH (08:39)
[2019-03-15] MEDS: Citalopram 20 MG TAB PO SCH (08:39)
[2019-03-15] MEDS: Torsemide 20 MG TAB PO SCH (08:40)
[2019-03-15] MEDS: cloNIDine 0.1 MG TAB PO SCH (08:40)
[2019-03-15] MEDS: Carvedilol 6.25 MG TAB PO SCH (08:45)
[2019-03-15] MEDS ORDERED: Isosorbide Dinitrate 20 MG TAB PO SCH (09:00)
[2019-03-15] MEDS ORDERED: hydrALAZINE 25 MG TAB PO SCH (09:00)
[2019-03-15] MEDS ORDERED: Amoxicillin/Potassium Clav 250 MG TAB PO SCH (09:00)
[2019-03-15] MEDS ORDERED: Amlodipine 5 MG TAB PO SCH (09:45)
[2019-03-15 10:09] VITALS: BP 118/73
--- NOTE | 2019-03-15 12:24 | PRG ---
DATE OF SERVICE: 03/15/2019 SUBJECTIVE: This is a 53-year-old lady being seen for end-stage renal disease. She denies nausea, vomiting, or chest pain. OBJECTIVE: CONSTITUTIONAL: Awake, alert, in no acute distress. VITAL SIGNS: Pulse 82, breathing 16, blood pressure 118/73. GENERAL APPEARANCE AND MENTAL STATUS: Fair. HEAD/NECK: Normocephalic. Atraumatic. EYES: EOMI. No deformity. EARS: Clear. No ulcers. NOSE: Intact. No lesions. MOUTH: Clear. No discharge. THROAT: Clear. No exudate. LUNGS: Clear. No crackles. CARDIAC: S1, S2. No rub. ABDOMEN: Benign. Bowel sounds positive. GENITALIA/RECTUM: Bower absent. BACK/EXTREMITIES: Edema 0+. NEUROLOGICAL: Alert and motor intact. SKIN: LYMPHATICS: LABORATORY DATA: Reviewed. ASSESSMENT AND PLAN: 1. Stage 6 chronic kidney disease. Plan peritoneal dialysis daily. 2. Hypertension, stable. 3. Anemia, stable. 4. Medication based on GFR appropriate. 5. Peritonitis, management per primary team. 6. Fibrin clots. We will use heparin during peritoneal dialysis. The nurse was informed at [facility]. Job ID: [id number]
== END 2019-03-15 14:23 | disposition home or self-care (01) | DRG 919 ==
LOC: ERS 13:32 → T4-B 16:01
PROVIDERS: ADMIT Internal Medicine; ATTEND Internal Medicine
PROC: 3E1M39Z Irrigation of Peritoneal Cavity using Dialysate, Percutaneous Approach (ICD-10-PCS; principal; 2019-03-14)
DX: T85.71XA Infection and inflammatory reaction due to peritoneal dialysis catheter, initial encounter (principal); K65.2 Spontaneous bacterial peritonitis; N18.6 End stage renal disease; A40.9 Streptococcal sepsis, unspecified; A28.0 Pasteurellosis; I12.0 Hypertensive chronic kidney disease with stage 5 chronic kidney disease or end stage renal disease; Y84.1 Kidney dialysis as the cause of abnormal reaction of the patient, or of later complication, without mention of misadventure at the time of the procedure; Z99.2 Dependence on renal dialysis; D64.9 Anemia, unspecified; E05.90 Thyrotoxicosis, unspecified without thyrotoxic crisis or storm; Z90.721 Acquired absence of ovaries, unilateral; Z85.41 Personal history of malignant neoplasm of cervix uteri
CPT/HCPCS: 36415; 71046; 80048; 80069; 80202; 83605; 85025; 85027; 87040; 87070; 87077; 87186; 87205; 87633; 87804; 94640; 96365; 96375; J0692; J1644; J3370; J7050; J7620; S0028

== ENCOUNTER 2019-05-25 05:54 | Day surgery (SDC) | payer OTHER, MEDICARE ==
[2019-05-22 10:50] VITALS: BMI 39.1
--- NOTE | 2019-05-22 12:13 | HP ---
HISTORY OF PRESENT ILLNESS: Melva Lima is a 53-year-old female, lives in [place], has peritoneal dialysis. She has never had a hemodialysis catheter. On 09/10/2018, I placed a laparoscopic peritoneal dialysis catheter, left arm fistula, perforating branch antecubital vein to the proximal radial artery, outflow cephalic and basilic vein, all the cephalic vein was larger. Exploration of left wrist revealed the cephalic vein at the wrist to be too small. The patient had some problems with drainage of her catheter and on 10/16/2018, she underwent laparoscopic evaluation of her PD catheter with a pexy suture to hold the catheter in the right lower quadrant, she had some adhesions in the left. This catheter seemed to function well until the last few weeks when she was not draining as much fluid and having some abdominal discomfort. Abdominal x-ray obtained revealed the peritoneal dialysis catheter to have migrated in the right upper pelvis. As the patient is only draining 1153-9170 mL out of the 2 L and having discomfort, plan is to laparoscopically reposition that and evaluate it, plan this under general anesthesia. She should be able postprocedural to avoid peritoneal dialysis for 3 days and do low volume after that and thus avoid hemodialysis catheter. In fact, she has a functional left upper arm fistula that could be accessed before having to place a catheter. This fistula in her left arm has never been accessed. It has good thrill and bruit and a good cephalic vein outflow signal, upper arm, left. PRIMARY CARE PHYSICIAN: Dr. Chan. PARACHUTE CROWN SEWER: Dr. Neely. MEDICATIONS: 1. Carvedilol. 2. Isosorbide. 3. Torsemide. 4. Vascepa. 5. . 6. Clonidine. 7. Isosorbide dinitrate. 8. Z-Raffy. PAST MEDICAL HISTORY: End-stage renal disease, on peritoneal dialysis. Hypertension, undergoing transplant evaluation, morbid obesity, 37. PAST SURGICAL HISTORY: Laparoscopic peritoneal dialysis catheter placement and revision, September and October 2018. Left arm fistula, September 2018. TOBACCO: None. ALCOHOL: None. ALLERGIES: NONE. PHYSICAL EXAMINATION: VITAL SIGNS: Weight 150 pounds, height 68 inches, 38 BMI, blood pressure 148/66, pulse 74, temperature 96.6 degrees. HEAD, EARS EYES, NOSE AND THROAT: Unremarkable. LUNGS: Clear to auscultation. CARDIAC: Regular rate and rhythm without murmur or gallop. ABDOMEN: Soft and nontender. Left lower quadrant peritoneal dialysis catheter exit site normal. EXTREMITIES: Left upper arm fistula, good thrill and bruit. Extremities are unremarkable. ASSESSMENT AND PLAN: 1. End-stage renal disease, on peritoneal dialysis. She has never undergone hemodialysis. She has a functional fistula that could be accessed if necessary. Her peritoneal dialysis catheter is not optimally functional and plan is to laparoscopically evaluate that as described above with postoperative dialysis plans as described above. 2. Functional left arm fistula, use it for dialysis if necessary to avoid the catheter. 3. Hypertension. 4. Morbid obesity, metabolic syndrome, undergoing transplant evaluation. She is 250 pounds, 38 BMI and she is interested in a sleeve gastrectomy. We will inform her of our bariatric procedures, seminar, web site and she will start that process and follow up with me regarding bariatric surgery in the future. Job ID: [id number]
[2019-05-25] MEDS ORDERED: Fentanyl 100 MCG/2 ML VIAL ONE ×2 (06:54→09:00)
[2019-05-25] MEDS ORDERED: Midazolam HCl 2 mg/2 ml Vial ONE (06:54)
[2019-05-25] MEDS ORDERED: Lidocaine 2% w/Epinephrine 1:200K 20 ML VIAL ONE (06:58)
[2019-05-25] MEDS ORDERED: Bupivacaine 0.25% HCL 30 ML VIAL ONE (06:58)
[2019-05-25] MEDS ORDERED: EPINEPHrine 1 MG/ML AMP ONE (06:59)
[2019-05-25] MEDS ORDERED: Lidocaine 2% PF 5 ML VIAL ONE (06:59)
[2019-05-25 07:04] LABS: #Basophils 0.1 thou/uL (0.0-0.2); #Eosinphils 0.4 thou/uL (0.0-0.7); #Lymphocytes 2.7 thou/uL (1.20-3.40); #Monocytes 0.6 thou/uL (0.11-0.59); #Neutrophils 2.6 thou/uL (1.40-6.50); %Basophils 1.1 % (0.0-1.0); %Eosinophils 5.9 % (0.0-10.0); %Lymphocytes 42.1 % (21.0-51.0); %Monocytes 9.7 % (0.0-10.0); %Neutrophils 41.2 % (42.0-75.0); Hemoglobin 11.8 g/dL (12.0-16.0); Mean Corpuscular HGB CONC 34.8 g/dL (32.0-36.0); Mean Corpuscular Hemoglobin 35.2 pg (27.0-31.0); Mean Platelet Volume 6.2 fL (7.4-10.4); Platelet Count 148 thou/uL (130-400); RBC Distribution Width 14.5 % (11.5-14.5); Red Blood Cell (RBC) Count 3.35 mill/uL (4.20-5.40); White Blood Cell (WBC) Count 6.3 thou/uL (4.8-10.8)
[2019-05-25 07:20] LABS: Anion Gap 15 mmol/L (10-20); BUN (Urea Nitrogen) 47 mg/dL (9.8-20.1); Calc. Creatinine Clearance 29 mL/min (70-130); Calcium 9.2 mg/dL (7.8-10.44); Carbon Dioxide 24 mmol/L (22-29); Chloride 105 mmol/L (98-107); Estimated GFR-MDRD 12; Glucose 107 mg/dL (70-105); Potassium 4.4 mmol/L (3.5-5.1); Sodium 140 mmol/L (136-145)
[2019-05-25] MEDS ORDERED: Heparin 10,000 UNITS/1 ML VIAL ONE (08:10)
[2019-05-25] MEDS ORDERED: SUGAMMADEX SODIUM 200 MG/2 ML VIAL ONE (08:12)
--- NOTE | 2019-05-25 11:25 | OP ---
DATE OF PROCEDURE: 05/25/2019 PREOPERATIVE DIAGNOSES: 1. End-stage renal disease. 2. Peritoneal dialysis catheter dysfunction. 3. Adhesions from prior surgery. 4. Midline incision. POSTOPERATIVE DIAGNOSES: 1. End-stage renal disease. 2. Peritoneal dialysis catheter dysfunction. 3. Adhesions from prior surgery. 4. Midline incision. PROCEDURES PERFORMED: 1. Laparoscopic evaluation of peritoneal dialysis catheter, finding it to be located in the upper right pelvis with adhesions in the left pelvis and some adhesions to a lesser degree of right pelvis. 2. Laparoscopic placement of nonabsorbable suture to direct the catheter in the right pelvis. ANESTHESIA: General and local with 0.5% Marcaine 30 mL, mixed with 1% Xylocaine with epinephrine 30 mL. DESCRIPTION OF PROCEDURE: The patient was taken to the operating room, where under general anesthesia, abdomen was prepared with ChloraPrep and draped in routine fashion. Catheter was also prepared. Left lateral subcostal incision was made. Pneumoperitoneum to 15 mmHg was obtained with Veress needle, replaced with a 5 port. There were adhesions present in the midline and inferior towards the pelvis. Adhesion free area was noted in the left lateral mid abdomen and a 5 port placed under laparoscopic visualization. Adhesiolysis was carried out. Careful dissection, freeing omental adhesions, fatty adhesions from the anterior abdominal wall, mid abdomen inferiorly, and freeing these, visualizing the peritoneal dialysis catheter, which was located in the right upper pelvis. A sling suture previously placed was intact, but had become slightly loosens as it eroded through the subcutaneous tissues. PD catheter was flushed. It was patent. Fibrinous debris flushed out easily. Adhesiolysis was undertaken, freeing the right pelvis, directing the catheter in the right pelvis, securing it with another sling suture of 0 Ethibond. GraNee needle transabdominal wall fixation suture used. It was snug. It was flushed with heparinized saline solution, 1000 units of heparin per mL, 10 mL. Good hemostasis noted. If this peritoneal dialysis catheter does not function well, she may not have optimal return, but if it functions, that may be acceptable for her to enable peritoneal dialysis. Pneumoperitoneum was reduced. All instruments were removed. All skin incisions were approximated with interrupted subdermal 4-0 Monocryl and [place] glue applied. Job ID: [id number]
--- NOTE | 2019-05-25 15:24 | EKG ---
Test Reason : PREOP Blood Pressure : / mmHG Vent. Rate : 069 BPM Atrial Rate : 069 BPM P-R Int : 180 ms QRS Dur : 088 ms QT Int : 430 ms P-R-T Axes : 051 015 047 degrees QTc Int : 460 ms Normal sinus rhythm Normal ECG Confirmed by WILMER GALEANA ([id number]) on 05/25/2019 3:24:09 PM Referred By: NAUN Confirmed By:WILMER GALEANA
== END 2019-05-25 10:50 | disposition home or self-care (01) ==
LOC: SDC 05:54
PROVIDERS: ATTEND Specialist
PROC: 0DNU4ZZ Release Omentum, Percutaneous Endoscopic Approach (ICD-10-PCS; principal; 2019-05-25)
DX: T85.691A Other mechanical complication of intraperitoneal dialysis catheter, initial encounter (principal); I12.0 Hypertensive chronic kidney disease with stage 5 chronic kidney disease or end stage renal disease; N18.6 End stage renal disease; E66.01 Morbid (severe) obesity due to excess calories; Z68.39 Body mass index [BMI] 39.0-39.9, adult; Z79.899 Other long term (current) drug therapy; Z88.2 Allergy status to sulfonamides; Z88.1 Allergy status to other antibiotic agents; Z91.041 Radiographic dye allergy status; Z91.048 Other nonmedicinal substance allergy status; Z99.2 Dependence on renal dialysis
CPT/HCPCS: 80048; 85025; 93005; 93010; J0171; J0690; J1644; J2001; J2250; J3010; S0020

== ENCOUNTER 2019-05-26 07:35 | Inpatient (IN) | payer OTHER, MEDICARE ==
[2019-05-26] MEDS ORDERED: Ondansetron PF 4 MG/2 ML Vial ONE (07:58)
[2019-05-26] MEDS ORDERED: Fentanyl 100 MCG/2 ML VIAL ONE (07:58)
[2019-05-26 08:17] LABS: #Lymphocytes 1.8 thou/uL (1.20-3.40); #Monocytes 0.6 thou/uL (0.11-0.59); %Basophils 0.2 % (0.0-1.0); %Eosinophils 0.2 % (0.0-10.0); %Lymphocytes 19.1 % (21.0-51.0); %Monocytes 6.8 % (0.0-10.0); %Neutrophils 73.7 % (42.0-75.0); Mean Corpuscular HGB CONC 34.8 g/dL (32.0-36.0); Mean Corpuscular Hemoglobin 35.4 pg (27.0-31.0); Mean Platelet Volume 6.5 fL (7.4-10.4); Platelet Count 207 thou/uL (130-400); RBC Distribution Width 14.8 % (11.5-14.5); Red Blood Cell (RBC) Count 2.53 mill/uL (4.20-5.40); White Blood Cell (WBC) Count 9.5 thou/uL (4.8-10.8)
[2019-05-26 08:37] LABS: ALT (SGPT) 20 U/L (8-55); AST (SGOT) 19 U/L (5-34); Albumin 3.7 g/dL (3.5-5.0); Alkaline Phosphatase 57 U/L (40-110); Anion Gap 17 mmol/L (10-20); BUN (Urea Nitrogen) 56 mg/dL (9.8-20.1); Bilirubin, Total 0.4 mg/dL (0.2-1.2); CK (CPK) 55 U/L (29-168); Calc. Creatinine Clearance 0 mL/min (70-130); Calcium 8.4 mg/dL (7.8-10.44); Carbon Dioxide 20 mmol/L (22-29); Chloride 104 mmol/L (98-107); Estimated GFR-MDRD 9; Globulin 2.4 g/dL (2.4-3.5); Glucose 157 mg/dL (70-105); Lipase 42 U/L (8-78); Potassium 4.8 mmol/L (3.5-5.1); Protein, Total 6.1 g/dL (6.0-8.3); Sodium 136 mmol/L (136-145)
--- NOTE | 2019-05-26 08:57 | CT ---
Exam: ABDOMEN CT WITHOUT CONTRAST PELVIC CT WITHOUT CONTRAST: COMPARISON: 05/12/2018 HISTORY: Replacement of peritoneal dialysis catheter. Pain. FINDINGS: Abdomen CT: Dependent atelectatic changes in the lung bases. Additional areas of consolidation in both lower lob es may represent atelectasis, pneumonia or aspiration. Heart is enlarged. There is a small amount of pericardial fluid. Limited evaluation of the solid organs by the lack of IV contrast. Grossly no solid organ abnormality . There is evidence of perihepatic and perisplenic fluid. Fluid tracks along both paracolic gutters. Additional patchy areas of intra-abdominal fluid are noted. There are small pockets of intra peritoneal air. There is also evidence of air in the anterior subcutaneous fat associated with the ventral abdominal wall hernias containing mesentery. No evidence of bowel herniation. Bilateral renal cortical atrophy. No evidence of obstructive uropathy. Atherosclerosis in a nonaneurysmal aorta. Pelvic CT: Free fluid in the pelvis likely due to peritoneal dialysis. Uterus appears to be surgically absent. H ypodensity in the right hemipelvis may represent a 2.1 x 2.1 cyst, possibly of ovarian origin. There are no lytic or blastic lesions within the osseous structures. IMPRESSION: Small pockets of intraluminal free air as well as free air in the ventral subcutaneous fat which may be in keeping with patient's history of recent repositioning of a peritoneal dialysis catheter. There is free fluid in the abdomen and pelvis, also compatible with patient's history of peritoneal d ialysis. Transcribed Date/Time: 05/26/2019 9:29 AM
[2019-05-26 10:07] LABS: Hemoglobin 8.6 g/dL (12.0-16.0)
--- NOTE | 2019-05-26 10:25 | CON ---
DATE OF CONSULTATION: 05/26/2019 CONSULTING PHYSICIAN: Dr. Kimball. REASON FOR CONSULTATION: End-stage renal disease evaluation and care and weakness. REASON FOR ADMISSION: Weakness. HISTORY OF PRESENT ILLNESS: This is a 53-year-old white female with history of end-stage renal disease, was on peritoneal dialysis switching to hemodialysis temporarily, hypertension, morbid obesity, and hyperlipidemia, came to the hospital with above complaints. The patient was doing PD, but PD catheter was not working well and was not in the proper position and also was and repositioning was done by Dr. Nunez yesterday and after surgery, she felt okay for few hours and started feeling bad. This morning, she was very weak and dizzy and she was hypotensive in dialysis and sent to the hospital. She is still not feeling well. She is having abdominal pain. She had a CAT scan done in the ER, which did not show any bleeding. Hemoglobin was low to 9 from 11.8. She was also hypertensive in the ER. No fever. No chills. PAST MEDICAL HISTORY: Positive for end-stage renal disease, hypertension, and morbid obesity. PAST SURGICAL HISTORY: Peritoneal dialysis catheter placement and fistula placement. HOME MEDICATIONS: Reviewed. ALLERGIES: SULFA. SOCIAL HISTORY: No smoking, alcohol, or illicit drugs. FAMILY HISTORY: No history of kidney disease. REVIEW OF SYSTEMS: CONSTITUTIONAL: Negative for weight loss or gain, ability to conduct usual activities. SKIN: Negative for rash, itching. EYES: Negative for double vision, pain. ENT/MOUTH: Negative for nose bleeding, neck stiffness, pain, tenderness. CARDIOVASCULAR: Negative for palpitations, dyspnea on exertion, orthopnea. RESPIRATORY: Negative for shortness of breath, wheezing, cough, hemoptysis, fever or night sweats. GASTROINTESTINAL: Negative for poor appetite, abdominal pain, heartburn, nausea, vomiting, constipation, or diarrhea. GENITOURINARY: Negative for urgency, frequency, dysuria, nocturia. MUSCULOSKELETAL: Negative for pain, swelling. NEUROLOGIC/PSYCHIATRIC: Negative for anxiety, depression. ALLERGY/IMMUNOLOGIC: Negative for skin rash, bleeding tendency. PHYSICAL EXAMINATION: GENERAL: This is a well-built female, in no apparent distress. VITAL SIGNS: Temperature 98.6, pulse 70, respiratory rate 18, and blood pressure 104/78. HEENT: Atraumatic and normocephalic. Oral mucosa moist. NECK: Supple. CV: S1 and S2 heard, rate and rhythm regular. RESPIRATORY: Clear. GI: Abdomen is distended. MUSCULOSKELETAL: No edema. DERMATOLOGIC: No skin rash. NEUROLOGIC: Alert and awake. PSYCHIATRIC: Mood and affect normal. LABORATORY DATA: Hemoglobin is 9.0, potassium 4.8, BUN is 56, and creatinine is 5.0. ASSESSMENT AND PLAN: 1. End-stage renal disease, was on peritoneal dialysis with revision of PD catheter yesterday. We will follow. No acute indication for dialysis. Plan is to have a hemodialysis for few days until cleared by Surgery. 2. History of hypertension, stable, currently hypotensive. 3. , rule out any bleed. 4. Anemia. Sudden drop in hemoglobin, concerning for bleed. We will watch closely. Again, no indication for blood transfusion at this time. We would recommend transfusion if hemoglobin around 10 or less. 5. Edema, controlled. Plan is to monitor closely pain control and watch hemoglobin and transfuse as needed. Thank you for the consult. We will follow. No acute indication for dialysis today. Job ID: [id number]
[2019-05-26 11:08] LABS: Lactic Acid 2.5 mmol/L (0.5-2.2)
[2019-05-26] MEDS ORDERED: Fentanyl 100 MCG/2 ML VIAL SLOW IVP PRN (13:15)
[2019-05-26] MEDS: oxyCODONE 5 MG TAB PO PRN (13:42)
[2019-05-26] MEDS: Acetaminophen 325 MG TAB PO PRN (14:32)
--- NOTE | 2019-05-26 14:46 | RAD ---
FRONTAL VIEW CHEST: INDICATION: Short of breath. FINDINGS: Shallow depth of inspiration, with bibasilar opacities. Prominence of cardiac silhouette and pulmonar y vasculature. Extrinsic leads limit detail. IMPRESSION: Shallow depth of inspiration with bibasilar densities that indicate either atelectasis or bibasilar p neumonia. Superimposed pleural fluid is not excluded. Recommend continued imaging follow-up which may be obtained with 2 view chest series. Transcribed Date/Time: 05/26/2019 3:06 PM
--- NOTE | 2019-05-26 14:55 | PDOC.HHP ---
Hospitalist HPI - History of Present Illness abdominal pain History of Present Illness: This is a 53 year old female with past medical history of ESRD on peritoneal dialysis, GERD, hypertension who presented to the emergency room with severe abdominal pain. The patient states that her peritoneal dialysis catheter migrated to her hip, so she underwent revision of it yesterday with Dr. Nunez. There were extensive adhesions that were lysed. The patient states that when she got home at around 3:30 pm she started developing severe abdominal pain all over, as well as some nausea, but no vomiting. Her abdominal pain was described as crampy sensations. She states she had a few small bowel movements and is passing some gas. The patient states her pain is worst with any kind of movement and when she takes a deep breath. It is sharp, radiates to her chest, left shoulder and her back. She has some shortness of breath and chest congestion. She has had no relief with IV pain medications thus far. She does complain of some dizziness, denies blood in her stools. ED Course: In the ER, the patient had normal vital signs. Hemoglobin was noted to have dropped from [address] abdomen was showing peritoneal fluid and some free air consistent with peritonal dialysis revision. Patient was given IV fentanyl, blood cultures and peritoneal cultures were drawn and patient was admitted to the floor. EKG showed normal sinus rhythm. Dr. Neely saw patient and stated will do HD after cleared by surgery. Hospitalist ROS - Review of Systems Constitutional: denies: fever, chills Eyes: denies: pain, vision change Respiratory: reports: shortness of breath, pleuritic pain. denies: cough, dry Cardiovascular: reports: chest pain. denies: palpitations, orthopnea Gastrointestinal: reports: nausea, abdominal pain. denies: vomiting, diarrhea, constipation Genitourinary: denies: frequency Musculoskeletal: reports: arm pain. denies: neck pain Skin: denies: rash, lesions - Medication Medications: Active Medications Generic Name Dose Route Start Last Admin Trade Name Freq PRN Reason Stop Dose Admin Acetaminophen 650 mg 05/26/19 11:45 05/26/19 14:32 Tylenol PO 650 mg Q4H PRN Administration Headache/Fever/Mild Pain (1-3) Oxycodone HCl 2.5 mg 05/26/19 13:25 05/26/19 13:42 Oxycodone Ir PO 2.5 mg Q6H PRN Administration Severe Pain (7-10) Hospitalist History - Past Medical History Cardiac: reports: HTN Heme/Onc: reports: Cancer (Cervical cancer in the past) Renal/: reports: Other (ESRD on PD) - Past Surgical History Past Surgical History: reports: (x3), Hysterectomy, Other (Abdominal surgery due to trauma.) - Social History Alcohol: reports: None Drugs: reports: none - Exam General Appearance: NAD, awake alert Eye: PERRL, anicteric sclera ENT: normocephalic atraumatic, no oropharyngeal lesions Neck: supple, symmetric, no JVD, no thyromegaly Heart: RRR, no murmur, no gallops, no rubs Respiratory: CTAB, no wheezes, no rales, no ronchi Gastrointestinal: soft, distended Gastrointestinal - other findings: RLQ and LLQ tenderness, rebound tenderness Extremities: no cyanosis, no clubbing, no edema Skin: normal turgor, no lesions, no rashes Neurological: cranial nerve grossly intact, normal sensation to touch, no focal deficits, no new deficit Musculoskeletal: normal tone, normal strength, no muscle wasting Hospitalist Results - Labs Result Diagrams: 05/26/19 16:43 05/26/19 08:03 Lab results: WBC 9.5 thou/uL (4.8-10.8) 05/26/19 08:04 Hgb 8.6 g/dL (12.0-16.0) L 05/26/19 09:56 Hct 24.5 % (36.0-47.0) L 05/26/19 09:56 MCV 102.0 fL (78.0-98.0) H 05/26/19 08:04 Plt Count 207 thou/uL (130-400) 05/26/19 08:04 Neutrophils % 73.7 % (42.0-75.0) 05/26/19 08:04 Sodium 136 mmol/L (136-145) 05/26/19 08:03 Potassium 4.8 mmol/L (3.5-5.1) 05/26/19 08:03 Chloride 104 mmol/L (98-107) 05/26/19 08:03 Carbon Dioxide 20 mmol/L (22-29) L 05/26/19 08:03 BUN 56 mg/dL (9.8-20.1) H 05/26/19 08:03 Creatinine 5.00 mg/dL (0.6-1.1) H 05/26/19 08:03 Glucose 157 mg/dL (70-105) H 05/26/19 08:03 Lactic Acid 2.5 mmol/L (0.5-2.2) H 05/26/19 10:43 Calcium 8.4 mg/dL (7.8-10.44) 05/26/19 08:03 Total Bilirubin 0.4 mg/dL (0.2-1.2) 05/26/19 08:03 AST 19 U/L (5-34) 05/26/19 08:03 ALT 20 U/L (8-55) 05/26/19 08:03 Alkaline Phosphatase 57 U/L (40-110) 05/26/19 08:03 Creatine Kinase 55 U/L (29-168) 05/26/19 08:03 Troponin I Less than 0.010 ng/mL (< 0.028) 05/26/19 08:03 B-Natriuretic Peptide Less than 10.0 pg/mL (0-100) 05/26/19 08:03 Serum Total Protein 6.1 g/dL (6.0-8.3) 05/26/19 08:03 Albumin 3.7 g/dL (3.5-5.0) 05/26/19 08:03 Lipase 42 U/L (8-78) 05/26/19 08:03 Hospitalist H&P A/P - Plan Plan: Chest X ray: atelectasis or bibasilar pneumonia CT abdomen: small pockets of intraluminal free air as well as free air in the ventral SC fat, free fluid in abdomen and pelvis This is a 53 year old female with ESRD on PD who presented with abdominal pain after PD catheter repositioning yesterday Abdominal pain s/p PD catheter revision - patient with severe abd pain, rebound tenderness, distension. CT abdomen showing some small pockets of intraluminal free air. Surgery consulted, recommended trending H and H, consider re-exploration tomorrow - given elevated WBC and lactate, will add IV zosyn to rule out intraabdominal infection - morphine IV prn - low dose IV fluids Anemia - Hb dropped to 8.6, giving 1 unit PRBC per surgery - trend H and H Shortness of breath - chest x ray shows atelectasis vs bibasilar pneumonia - add IV zosyn - may need HD soon ESRD on PD - nephrology consulted and following, plan for HD when surgery clears patient GERD - protonix Hypertension - BP on soft side, hold home meds for now DVT prophylaxis: hold for now Code status: full code
[2019-05-26 15:00] LABS: #Lymphocytes 2.4 thou/uL (1.20-3.40); #Monocytes 1.1 thou/uL (0.11-0.59); #Neutrophils 7.7 thou/uL (1.40-6.50); %Basophils 0.3 % (0.0-1.0); %Eosinophils 0.2 % (0.0-10.0); %Lymphocytes 21.6 % (21.0-51.0); %Monocytes 9.7 % (0.0-10.0); %Neutrophils 68.3 % (42.0-75.0); Hemoglobin 8.2 g/dL (12.0-16.0); Mean Corpuscular HGB CONC 35.6 g/dL (32.0-36.0); Mean Platelet Volume 6.2 fL (7.4-10.4); Platelet Count 198 thou/uL (130-400); RBC Distribution Width 14.8 % (11.5-14.5); Red Blood Cell (RBC) Count 2.29 mill/uL (4.20-5.40); White Blood Cell (WBC) Count 11.3 thou/uL (4.8-10.8)
[2019-05-26] MEDS: Piperacillin/Tazobactam 3.375 GM in Sodium Chloride 0.9% 100 ML IVPB SCH ×2 (15:08→19:52)
[2019-05-26] MEDS ORDERED: Heparin 1,000 UNITS/ML VIAL ONE (15:17)
[2019-05-26 15:30] LABS: INR-International Normal Ratio 1.1; PTT 30.3 SEC (22.9-36.1); Prothrombin Time 14.3 SEC (12.0-14.7)
[2019-05-26] MEDS ORDERED: Acetaminophen 325 MG TAB PO PRN (15:39)
[2019-05-26] MEDS: Morphine 2 MG/ML SYRINGE SLOW IVP PRN ×3 (16:17→23:37)
--- NOTE | 2019-05-26 16:53 | CON ---
DATE OF CONSULTATION: CHIEF COMPLAINT: Severe right-sided abdominal pain. HISTORY OF PRESENT ILLNESS: This is a 53-year-old female, who had a laparoscopic peritoneal dialysis catheter repositioning yesterday via laparoscope. She got home, she developed severe abdominal pain. Evidently, there were some adhesions that had to be lysed and a suture was placed to direct the catheter into the right pelvis with the GraNee needle, used approximately 10,000 units of heparin during the surgery. The pain radiates to her back, was associated with nausea, no vomiting. She was unable to tolerate any pain medicine due to hypotension. PAST MEDICAL HISTORY: 1. Morbid obesity. 2. End-stage renal failure. 3. Cervical cancer. PAST SURGICAL HISTORY: 1. section. 2. Hysterectomy. 3. Trauma laparotomy. PHYSICAL EXAMINATION: VITAL SIGNS: Temperature is 97.2, pulse 107, blood pressure 115/60. GENERAL: She is awake, alert, in pain. HEENT: Unremarkable. LUNGS: Clear. HEART: Regular rate and rhythm. ABDOMEN: Obese, soft, slightly distended. She has a hypertrophic midline scar. She has a peritoneal catheter in the right lower quadrant. There is some blood within the tubing. LABORATORY DATA: Her hemoglobin has gone from 11 to 8.2 over the last 24 hours. Her PT is 14, PTT is 30, and platelet count 198. CT scan showed patchy abdominal fluid, occasional pockets of air. ASSESSMENT: Poor pain control due to inability to tolerate narcotics, probably some hemorrhage, probably some peritoneal inflammation from the blood as well as the suture. PLAN: I would recommend tank interrupt with the unit of blood, so that she can tolerate some pain medicine, apply ice packs. Serial hemoglobin and hematocrit. If she continues to drift down, she may need reexploration. Job ID: [id number]
[2019-05-26] MEDS: valACYclovir 500 MG TAB PO SCH (19:53)
[2019-05-26] MEDS: Citalopram 20 MG TAB PO SCH (19:53)
[2019-05-26] MEDS: Gabapentin 100 MG CAP PO SCH (19:53)
[2019-05-26] MEDS: Sodium Chloride 0.9% 1,000 ML IV SCH (20:00)
[2019-05-26 22:30] LABS: Hemoglobin 9.8 g/dL (12.0-16.0)
[2019-05-27] MEDS: Piperacillin/Tazobactam 3.375 GM in Sodium Chloride 0.9% 100 ML IVPB SCH ×4 (03:26→22:43)
[2019-05-27] MEDS: Sodium Chloride 0.9% 1,000 ML IV SCH ×3 (03:26→12:50)
[2019-05-27] MEDS: Morphine 2 MG/ML SYRINGE SLOW IVP PRN ×2 (03:52→09:00)
[2019-05-27 04:10] LABS: #Lymphocytes 3.1 thou/uL (1.20-3.40); #Monocytes 2.6 thou/uL (0.11-0.59); #Neutrophils 12.8 thou/uL (1.40-6.50); %Basophils 0.2 % (0.0-1.0); %Eosinophils 0.3 % (0.0-10.0); %Lymphocytes 16.5 % (21.0-51.0); %Monocytes 14.1 % (0.0-10.0); Hemoglobin 8.7 g/dL (12.0-16.0); Mean Corpuscular Hemoglobin 35.6 pg (27.0-31.0); Mean Corpuscular Volume 98.8 fL (78.0-98.0); Mean Platelet Volume 6.3 fL (7.4-10.4); Platelet Count 180 thou/uL (130-400); RBC Distribution Width 16.3 % (11.5-14.5); Red Blood Cell (RBC) Count 2.44 mill/uL (4.20-5.40); White Blood Cell (WBC) Count 18.5 thou/uL (4.8-10.8)
[2019-05-27 04:27] LABS: Lactic Acid 2.7 mmol/L (0.5-2.2)
[2019-05-27 04:29] LABS: Anion Gap 18 mmol/L (10-20); BUN (Urea Nitrogen) 68 mg/dL (9.8-20.1); Calc. Creatinine Clearance 17 mL/min (70-130); Calcium 8.1 mg/dL (7.8-10.44); Carbon Dioxide 18 mmol/L (22-29); Chloride 104 mmol/L (98-107); Estimated GFR-MDRD 6; Glucose 125 mg/dL (70-105); Potassium 5.3 mmol/L (3.5-5.1); Sodium 135 mmol/L (136-145)
[2019-05-27] MEDS: valACYclovir 500 MG TAB PO SCH ×3 (05:04→22:43)
[2019-05-27] MEDS: Gabapentin 100 MG CAP PO SCH ×2 (08:57→22:43)
[2019-05-27] MEDS: Calcitriol 0.25 MCG CAP PO SCH (08:58)
[2019-05-27] MEDS: Calcium Polycarbophil 625 MG TAB PO SCH (08:58)
[2019-05-27] MEDS: Folic Acid/Vit B Comp W-C PO SCH (08:58)
[2019-05-27] MEDS: Loratadine 10 MG TAB PO SCH (08:58)
[2019-05-27] MEDS: Gentamicin TOPICAL Ointment 0.1% 15 gm Tube TOP SCH (09:00)
[2019-05-27 10:38] LABS: Hemoglobin 7.7 g/dL (12.0-16.0)
--- NOTE | 2019-05-27 10:39 | PRG ---
DATE OF SERVICE: 05/27/2019 SUBJECTIVE: The patient is feeling much better today. The pain is improved. Nausea gone. OBJECTIVE: VITAL SIGNS: Temperature is 98, pulse 103, and blood pressure is 93/52. GENERAL: She is awake, alert. ABDOMEN: Obese, soft. She is ammonia still operator along the right side. She did have some urine output. Even though, she is a renal failure patient, she had about 100 mL of urine. LABORATORY DATA: Her white count is 18.5, H and H of 8.7 and 24.2, and platelet count of 180. Her potassium is 5.3, BUN 68, creatinine is 6.7, and glucose 125. ASSESSMENT: Postoperative bleed from dialysis catheter placement, improving. PLAN: To continue to follow H and H. Dialysis as needed. Job ID: [id number]
--- NOTE | 2019-05-27 10:53 | PDOC.HOSPP ---
- Subjective Encounter Date: 05/27/19 Encounter Time: 10:53 - Objective Vital Signs & Weight: Vital Signs (12 hours) Temp Pulse Resp BP BP Pulse Ox 05/27/19 07:59 98 F 103 H 18 93/52 L 95 05/27/19 03:17 97.5 F L 106 H 14 111/60 93 L Weight Weight 250 lb 6.4 oz I&O: 05/26/19 05/27/19 05/28/19 06:59 06:59 06:59 Intake Total 120 Output Total 0 Balance 120 Result Diagrams: 05/27/19 10:29 05/27/19 03:59 Hospitalist ROS - Medication Medications: Active Medications Generic Name Dose Route Start Last Admin Trade Name Freq PRN Reason Stop Dose Admin Acetaminophen 650 mg 05/26/19 11:45 05/26/19 14:32 Tylenol PO 650 mg Q4H PRN Administration Headache/Fever/Mild Pain (1-3) Calcitriol 0.25 mcg 05/27/19 09:00 05/27/19 08:58 Rocaltrol PO 0.25 mcg MWF [facility] Administration Calcium Polycarbophil 1,250 mg 05/27/19 09:00 05/27/19 08:58 Fibercon PO 1,250 mg DAILY [facility] Administration Citalopram Hydrobromide 20 mg 05/26/19 21:00 05/26/19 19:53 Celexa PO 20 mg HS [facility] Administration Gabapentin 100 mg 05/26/19 21:00 05/27/19 08:57 Neurontin PO 100 mg BID [facility] Administration Gentamicin Sulfate 0 gm 05/27/19 09:00 05/27/19 09:00 Garamycin 0.1% Ointment TOP Not Given DAILY [facility] Sodium Chloride 1,000 mls @ 75 mls/hr 05/26/19 11:45 05/27/19 03:26 Normal Saline 0.9% IV 1,000 mls .[id number] [facility] Administration Piperacillin Sod/Tazobactam 100 mls @ 200 mls/hr 05/26/19 15:00 05/27/19 08: 58 Sod 3.375 gm/ Sodium Chloride IVPB 100 mls 0300,0900,1500,2100 [facility] Administration Loratadine 10 mg 05/27/19 09:00 05/27/19 08:58 Claritin PO 10 mg DAILY [facility] Administration Morphine Sulfate 2 mg 05/26/19 15:40 05/27/19 09:00 Morphine SLOW IVP 2 mg Q4H PRN Administration Severe Pain (7-10) Oxycodone HCl 2.5 mg 05/26/19 13:25 05/26/19 13:42 Oxycodone Ir PO 2.5 mg Q6H PRN Administration Severe Pain (7-10) Valacyclovir HCl 1,000 mg 05/26/19 22:00 05/27/19 05:04 Valtrex PO 1,000 mg Q8HR [facility] Administration Vitamin B Complex/Vit C/Folic Acid 1 tab 05/27/19 07:30 05/27/19 08:58 Nephro-Hiro Tablet PO 1 tab DAILY-AC [facility] Administration
--- NOTE | 2019-05-27 12:41 | PDOC.HOSPP ---
- Subjective Encounter Date: 05/27/19 Encounter Time: 10:00 Subjective: The patient feels better. She still has some chest pain but better. Shortness of breath has improved and abdominal pain as well, but it still hurts to move. Hb dropped to 7, discussed with nephrology, plan to transfuse 2 units of blood and do dialysis this afternoon THe patient has not had a bowel movement today. She is not passing gas. She didn't have much of an appetite today - Objective Vital Signs & Weight: Vital Signs (12 hours) Temp Pulse Resp BP BP Pulse Ox 05/27/19 11:23 97.9 F 108 H 20 108/55 L 95 05/27/19 07:59 98 F 103 H 18 93/52 L 95 05/27/19 03:17 97.5 F L 106 H 14 111/60 93 L Weight Weight 250 lb 6.4 oz I&O: 05/26/19 05/27/19 05/28/19 06:59 06:59 06:59 Intake Total 120 Output Total 0 Balance 120 Result Diagrams: 05/27/19 10:29 05/27/19 03:59 Hospitalist ROS - Review of Systems Constitutional: denies: fever, chills Respiratory: reports: cough, pleuritic pain Gastrointestinal: denies: nausea, vomiting, abdominal pain - Medication Medications: Active Medications Generic Name Dose Route Start Last Admin Trade Name Freq PRN Reason Stop Dose Admin Acetaminophen 650 mg 05/26/19 11:45 05/26/19 14:32 Tylenol PO 650 mg Q4H PRN Administration Headache/Fever/Mild Pain (1-3) Calcitriol 0.25 mcg 05/27/19 09:00 05/27/19 08:58 Rocaltrol PO 0.25 mcg MWF [facility] Administration Calcium Polycarbophil 1,250 mg 05/27/19 09:00 05/27/19 08:58 Fibercon PO 1,250 mg DAILY [facility] Administration Citalopram Hydrobromide 20 mg 05/26/19 21:00 05/26/19 19:53 Celexa PO 20 mg HS [facility] Administration Gabapentin 100 mg 05/26/19 21:00 05/27/19 08:57 Neurontin PO 100 mg BID [facility] Administration Gentamicin Sulfate 0 gm 05/27/19 09:00 05/27/19 09:00 Garamycin 0.1% Ointment TOP Not Given DAILY [facility] Sodium Chloride 1,000 mls @ 75 mls/hr 05/26/19 11:45 05/27/19 11:23 Normal Saline 0.9% IV 1,000 mls .[id number] [facility] Administration Piperacillin Sod/Tazobactam 100 mls @ 200 mls/hr 05/26/19 15:00 05/27/19 08: 58 Sod 3.375 gm/ Sodium Chloride IVPB 100 mls 0300,0900,1500,2100 [facility] Administration Loratadine 10 mg 05/27/19 09:00 05/27/19 08:58 Claritin PO 10 mg DAILY [facility] Administration Morphine Sulfate 2 mg 05/26/19 15:40 05/27/19 09:00 Morphine SLOW IVP 2 mg Q4H PRN Administration Severe Pain (7-10) Oxycodone HCl 2.5 mg 05/26/19 13:25 05/26/19 13:42 Oxycodone Ir PO 2.5 mg Q6H PRN Administration Severe Pain (7-10) Valacyclovir HCl 1,000 mg 05/26/19 22:00 05/27/19 05:04 Valtrex PO 1,000 mg Q8HR [facility] Administration Vitamin B Complex/Vit C/Folic Acid 1 tab 05/27/19 07:30 05/27/19 08:58 Nephro-Hiro Tablet PO 1 tab DAILY-AC [facility] Administration - Exam General Appearance: NAD, awake alert Eye: PERRL ENT: normocephalic atraumatic, no oropharyngeal lesions Neck: supple, symmetric, no JVD, no thyromegaly Heart: RRR, no murmur, no gallops, no rubs Respiratory: CTAB, no wheezes, no rales, no ronchi Gastrointestinal: soft Gastrointestinal - other findings: distended. Minimal bowel sounds RLQ, some rebound tenderness Extremities: no cyanosis, no clubbing, no edema Skin: normal turgor Hosp A/P - Plan Chest X ray: atelectasis or bibasilar pneumonia CT abdomen: small pockets of intraluminal free air as well as free air in the ventral SC fat, free fluid in abdomen and pelvis This is a 53 year old female with ESRD on PD who presented with abdominal pain after PD catheter repositioning yesterday Abdominal pain s/p PD catheter revision - - could be postop bleeding vs intra- abdominal infection - patient with severe abd pain, rebound tenderness, distension. CT abdomen showing some small pockets of intraluminal free air. H&H downtrending, could be some postop bleeding. Plan to transfuse 2 units PRBC during dialysis today. Appreciate surgical recs - continue IV zosyn, blood cultures and body fluid culture preliminarily negative, however lactate high - repeat BMP and lactate after dialysis -IV fluids and morphine prn for pain Anemia - Hb dropped to 7.7, give 2 units PRBC today, had 1 unit yesterday Shortness of breath - possibly from pneumonia -chest X ray shows bibasilar pneumonia vs atelectasis - continue IV zosyn, blood cultures negative -plan for hD today ESRD on PD - nephrology consulted and following, plan for HD when surgery clears patient GERD - protonix Hypertension - BP on soft side, hold home meds for now DVT prophylaxis: hold for now Code status: full code
[2019-05-27 13:00] LABS: Hep B Surf Ag Non-Reactive S/CO (NonReactive)
--- NOTE | 2019-05-27 13:25 | PRG ---
DATE OF SERVICE: 05/27/2019 SUBJECTIVE: Patient was seen and examined at bedside and overnight events noted. Patient denies any shortness of breath or chest pain or palpitation. No history of nausea or vomiting or diarrhea or fever or chills or cramps. OBJECTIVE: GENERAL: This is an obese female, in no acute distress. VITAL SIGNS: Temperature 97.9. Heart rate 108. Respiratory rate 20. Blood pressure 108/55. HEENT: Atraumatic, normocephalic. Oral mucosa is moist NECK: Supple. CARDIOVASCULAR: S1, S2 heard. Rate and rhythm regular. RESPIRATORY: Clear to auscultation. GASTROINTESTINAL: Abdomen is soft. MUSCULOSKELETAL: No tenderness. No edema. DERMATOLOGIC: No skin rash. NEUROLOGIC: Alert and awake and oriented X3. No focal neurologic deficits. Moving all the extremities. PSYCHIATRIC: Mood and affect normal. LABORATORY DATA: Potassium 5.3, BUN is 68, creatinine is 6.7. Hemoglobin is 7.7. ASSESSMENT AND PLAN: 1. End-stage renal disease, on hemodialysis status post revision of peritoneal dialysis catheter. The patient is still having abdominal pain and drop in hemoglobin, concerning for intraabdominal bleed. Surgery consulted. Renal is following. 2. Recent intraabdominal surgery with a concern for bleed. 3. Anemia. Monitor hemoglobin. We will transfuse 2 units of blood with hemodialysis today. 4. Plan is to have dialysis today. 5. Hyperkalemia, mild. We will have dialysis. 6. Edema, controlled. 7. History of hypertension, currently hypotensive, concern for bleed. 8. I am going to closely watch for bleed and hemoglobin and we will transfuse 2 units of blood with dialysis and we will follow hospital. Job ID: [id number]
[2019-05-27] MEDS: oxyCODONE 5 MG TAB PO PRN (17:56)
[2019-05-27 18:08] LABS: Hemoglobin 9.2 g/dL (12.0-16.0); Mean Corpuscular HGB CONC 35.6 g/dL (32.0-36.0); Mean Corpuscular Hemoglobin 33.4 pg (27.0-31.0); Mean Corpuscular Volume 93.9 fL (78.0-98.0); Mean Platelet Volume 6.7 fL (7.4-10.4); Platelet Count 165 thou/uL (130-400); RBC Distribution Width 16.6 % (11.5-14.5); Red Blood Cell (RBC) Count 2.77 mill/uL (4.20-5.40); White Blood Cell (WBC) Count 15.2 thou/uL (4.8-10.8)
[2019-05-27 18:21] LABS: Anion Gap 18 mmol/L (10-20); BUN (Urea Nitrogen) 44 mg/dL (9.8-20.1); Calc. Creatinine Clearance 25 mL/min (70-130); Calcium 8.4 mg/dL (7.8-10.44); Carbon Dioxide 23 mmol/L (22-29); Chloride 99 mmol/L (98-107); Estimated GFR-MDRD 10; Glucose 107 mg/dL (70-105); Potassium 4.2 mmol/L (3.5-5.1); Sodium 136 mmol/L (136-145)
[2019-05-27 22:28] LABS: Hemoglobin 8.2 g/dL (12.0-16.0)
[2019-05-27] MEDS: Citalopram 20 MG TAB PO SCH (22:43)
[2019-05-28] MEDS: oxyCODONE 5 MG TAB PO PRN (00:42)
[2019-05-28] MEDS: Piperacillin/Tazobactam 3.375 GM in Sodium Chloride 0.9% 100 ML IVPB SCH ×4 (02:41→20:42)
[2019-05-28] MEDS: Sodium Chloride 0.9% 1,000 ML IV SCH ×3 (02:42→16:25)
[2019-05-28 04:27] LABS: Anion Gap 18 mmol/L (10-20); BUN (Urea Nitrogen) 50 mg/dL (9.8-20.1); Calc. Creatinine Clearance 20 mL/min (70-130); Calcium 7.7 mg/dL (7.8-10.44); Carbon Dioxide 19 mmol/L (22-29); Chloride 100 mmol/L (98-107); Estimated GFR-MDRD 8; Glucose 109 mg/dL (70-105); Potassium 4.6 mmol/L (3.5-5.1); Sodium 132 mmol/L (136-145)
[2019-05-28 05:01] LABS: Hemoglobin 7.6 g/dL (12.0-16.0); Mean Corpuscular HGB CONC 34.8 g/dL (32.0-36.0); Mean Corpuscular Hemoglobin 33.7 pg (27.0-31.0); Mean Corpuscular Volume 96.9 fL (78.0-98.0); Mean Platelet Volume 6.9 fL (7.4-10.4); Platelet Count 121 thou/uL (130-400); RBC Distribution Width 16.9 % (11.5-14.5); Red Blood Cell (RBC) Count 2.25 mill/uL (4.20-5.40); White Blood Cell (WBC) Count 12.3 thou/uL (4.8-10.8)
[2019-05-28] MEDS: valACYclovir 500 MG TAB PO SCH ×3 (06:32→20:44)
[2019-05-28] MEDS: Folic Acid/Vit B Comp W-C PO SCH (07:50)
[2019-05-28] MEDS: Loratadine 10 MG TAB PO SCH (09:07)
[2019-05-28] MEDS: Gabapentin 100 MG CAP PO SCH ×2 (09:07→20:43)
[2019-05-28] MEDS: Calcium Polycarbophil 625 MG TAB PO SCH (09:07)
[2019-05-28] MEDS: Gentamicin TOPICAL Ointment 0.1% 15 gm Tube TOP SCH (09:07)
--- NOTE | 2019-05-28 09:20 | PRG ---
DATE OF SERVICE: 05/28/2019 SUBJECTIVE: The patient is feeling much better today. No nausea or vomiting. She is tolerating some liquids. She is passing flatus. OBJECTIVE: VITAL SIGNS: Temperature 99, pulse 98, and blood pressure 95/53. GENERAL: She is awake and alert. ABDOMEN: Distended. SKIN: There is no ecchymosis. LABORATORY DATA: Her white count is 12, H and H are 7.6 and 21, and platelet count 121. ASSESSMENT: Postoperative bleed from dialysis catheter placement. PLAN: Recommend transfusion 1 unit. Job ID: [id number]
--- NOTE | 2019-05-28 09:25 | PDOC.HOSPP ---
- Subjective Encounter Date: 05/28/19 Encounter Time: 13:00 Subjective: Patient with less abd pain. Some unsteadiness when get up but not bad. Some confusion this morning and feeling of hallucination of people in room when starts to fall asleep this AM. Thinks she slept well last night but nursing thinks she didn't. No hallucinations when awake. - Objective Vital Signs & Weight: Vital Signs (12 hours) Temp Pulse Resp BP Pulse Ox 05/28/19 07:43 99 F 98 20 95/53 L 94 L 05/28/19 03:09 99.0 F 103 H 16 100/57 L 93 L 05/27/19 23:43 94 L 05/27/19 22:34 109 H 94 L Weight Weight 250 lb 6.4 oz I&O: 05/27/19 05/28/19 05/29/19 06:59 06:59 06:59 Intake Total 120 1800 Output Total 0 200 Balance 120 1600 Result Diagrams: 05/28/19 04:07 05/28/19 04:07 Hospitalist ROS - Review of Systems Constitutional: denies: fever, chills Respiratory: reports: shortness of breath. denies: cough Cardiovascular: denies: chest pain, palpitations Gastrointestinal: reports: abdominal pain (none while lying still, 3/10 when sit up and move around). denies: nausea, vomiting, diarrhea, constipation Neurological: reports: weakness - Medication Medications: Active Medications Generic Name Dose Route Start Last Admin Trade Name Freq PRN Reason Stop Dose Admin Acetaminophen 650 mg 05/26/19 11:45 05/26/19 14:32 Tylenol PO 650 mg Q4H PRN Administration Headache/Fever/Mild Pain (1-3) Calcitriol 0.25 mcg 05/27/19 09:00 05/27/19 08:58 Rocaltrol PO 0.25 mcg MWF [facility] Administration Calcium Polycarbophil 1,250 mg 05/27/19 09:00 05/28/19 09:07 Fibercon PO 1,250 mg DAILY [facility] Administration Citalopram Hydrobromide 20 mg 05/26/19 21:00 05/27/19 22:43 Celexa PO 20 mg HS [facility] Administration Gabapentin 100 mg 05/26/19 21:00 05/28/19 09:07 Neurontin PO 100 mg BID [facility] Administration Gentamicin Sulfate 0 gm 05/27/19 09:00 05/28/19 09:07 Garamycin 0.1% Ointment TOP Not Given DAILY [facility] Sodium Chloride 1,000 mls @ 75 mls/hr 05/26/19 11:45 05/28/19 02:42 Normal Saline 0.9% IV 1,000 mls .[id number] [facility] Administration Piperacillin Sod/Tazobactam 100 mls @ 200 mls/hr 05/26/19 15:00 05/28/19 02: 41 Sod 3.375 gm/ Sodium Chloride IVPB 100 mls 0300,0900,1500,2100 [facility] Administration Loratadine 10 mg 05/27/19 09:00 05/28/19 09:07 Claritin PO 10 mg DAILY [facility] Administration Morphine Sulfate 2 mg 05/26/19 15:40 05/27/19 09:00 Morphine SLOW IVP 2 mg Q4H PRN Administration Severe Pain (7-10) Oxycodone HCl 2.5 mg 05/26/19 13:25 05/28/19 00:42 Oxycodone Ir PO 2.5 mg Q6H PRN Administration Severe Pain (7-10) Valacyclovir HCl 1,000 mg 05/26/19 22:00 05/28/19 06:32 Valtrex PO 1,000 mg Q8HR [facility] Administration Vitamin B Complex/Vit C/Folic Acid 1 tab 05/27/19 07:30 05/28/19 07:50 Nephro-Hiro Tablet PO 1 tab DAILY-AC [place] Administration - Exam General Appearance: NAD, awake alert Eye: anicteric sclera ENT: moist mucosa Heart: RRR, no murmur, no gallops, no rubs Respiratory: CTAB, no wheezes, no rales, no ronchi Gastrointestinal: soft, normal bowel sounds, no palpable masses, no hepatomegaly , no splenomegaly, no rigidity, distended Musculoskeletal: normal tone, normal strength Psychiatric: normal affect, normal behavior, A&O x 3 Hosp A/P (1) Abdominal pain Code(s): R10.9 - UNSPECIFIED ABDOMINAL PAIN Status: Acute Qualifiers: Abdominal location: generalized Qualified Code(s): R10.84 - Generalized abdominal pain Plan: after PD dialysis catheter revision (2) Anemia due to blood loss, acute Code(s): D62 - ACUTE POSTHEMORRHAGIC ANEMIA Status: Acute (3) Hypotension Status: Acute (4) Hx of essential hypertension Code(s): Z86.79 - PERSONAL HISTORY OF OTHER DISEASES OF THE CIRCULATORY SYSTEM Status: Chronic (5) ESRD on peritoneal dialysis Code(s): N18.6 - END STAGE RENAL DISEASE; Z99.2 - DEPENDENCE ON RENAL DIALYSIS Status: Chronic (6) GERD (gastroesophageal reflux disease) Code(s): K21.9 - GASTRO-ESOPHAGEAL REFLUX DISEASE WITHOUT ESOPHAGITIS Status: Chronic (7) Respiratory failure with hypoxia Code(s): J96.91 - RESPIRATORY FAILURE, UNSPECIFIED WITH HYPOXIA Status: Acute Qualifiers: Chronicity: acute Qualified Code(s): J96.01 - Acute respiratory failure with hypoxia Plan: on 4L NC (8) Confusion Code(s): R41.0 - DISORIENTATION, UNSPECIFIED Status: Acute Plan: concern for onset of hospital delirium, will give Seroquel tonight to try and help sleep - Plan continue antibiotics Patient transfused 2 units PRBC yesterday, blood count now back down to 7.6 today suspect active intraabdominal blood loss, general surgery following, may need reexploration BP on low side, holding home BP meds Currently on Zosyn CXR with atelectasis from poor inspiration vs. pneumonia, currently requiring 4L NC O2
--- NOTE | 2019-05-28 13:24 | PRG ---
DATE OF SERVICE: 05/28/2019 SUBJECTIVE: Patient was seen and examined at bedside and overnight events noted. Patient denies any shortness of breath or chest pain or palpitation. No history of nausea or vomiting or diarrhea or fever or chills or cramps. OBJECTIVE: GENERAL: This is an obese female, in no apparent distress. VITAL SIGNS: Temperature 99.6. Heart rate 95. Respiratory rate 18. Blood pressure 117/58. HEENT: Atraumatic, normocephalic. Oral mucosa is moist NECK: Supple. CARDIOVASCULAR: S1, S2 heard. Rate and rhythm regular. RESPIRATORY: Clear to auscultation. GASTROINTESTINAL: Abdomen is soft. MUSCULOSKELETAL: No tenderness. No edema. DERMATOLOGIC: No skin rash. NEUROLOGIC: Alert and awake and oriented X3. No focal neurologic deficits. Moving all the extremities. PSYCHIATRIC: Mood and affect normal. LABORATORY DATA: Potassium is 4.6, BUN is 50, and creatinine is 5.2. ASSESSMENT AND PLAN: 1. End-stage renal disease. Continue on hemodialysis. No dialysis today. Okay with blood transfusion and we will plan for hemodialysis tomorrow. 2. Recent intra-abdominal surgery with peritoneal dialysis catheter repositioning with concerns for bleeding. 3. Anemia with concern for bleeding. Agree with transfusion and close monitor hemoglobin. a. Clinically, the patient is feeling better. 4. Hyperkalemia, better. 5. Edema, controlled. 6. History of hypotension. We will monitor. Plan to monitor closely blood pressure and clinical symptoms are better. Hemoglobin is still dropping. Agree with 1 units of blood. The patient is hypoxic, most likely from atelectasis. Plan to have hemodialysis tomorrow as tolerated. Limit potassium intake and we will follow. Job ID: [id number]
[2019-05-28 16:29] LABS: Hemoglobin 7.7 g/dL (12.0-16.0)
[2019-05-28] MEDS: Citalopram 20 MG TAB PO SCH (20:42)
[2019-05-29] MEDS: Piperacillin/Tazobactam 3.375 GM in Sodium Chloride 0.9% 100 ML IVPB SCH ×4 (02:49→21:31)
[2019-05-29 05:03] LABS: #Eosinphils 0.3 thou/uL (0.0-0.7); #Lymphocytes 1.5 thou/uL (1.20-3.40); #Monocytes 1.1 thou/uL (0.11-0.59); #Neutrophils 5.7 thou/uL (1.40-6.50); %Basophils 0.4 % (0.0-1.0); %Lymphocytes 17.9 % (21.0-51.0); %Monocytes 12.2 % (0.0-10.0); %Neutrophils 66.5 % (42.0-75.0); Hemoglobin 7.9 g/dL (12.0-16.0); Mean Corpuscular HGB CONC 36.5 g/dL (32.0-36.0); Mean Corpuscular Hemoglobin 33.9 pg (27.0-31.0); Mean Platelet Volume 6.4 fL (7.4-10.4); Platelet Count 122 thou/uL (130-400); RBC Distribution Width 16.1 % (11.5-14.5); Red Blood Cell (RBC) Count 2.33 mill/uL (4.20-5.40); White Blood Cell (WBC) Count 8.6 thou/uL (4.8-10.8)
[2019-05-29 05:26] LABS: Anion Gap 16 mmol/L (10-20); BUN (Urea Nitrogen) 59 mg/dL (9.8-20.1); Calc. Creatinine Clearance 18 mL/min (70-130); Calcium 7.9 mg/dL (7.8-10.44); Carbon Dioxide 19 mmol/L (22-29); Chloride 101 mmol/L (98-107); Estimated GFR-MDRD 7; Glucose 91 mg/dL (70-105); Sodium 132 mmol/L (136-145)
[2019-05-29] MEDS: valACYclovir 500 MG TAB PO SCH ×3 (05:47→21:33)
[2019-05-29] MEDS: Sodium Chloride 0.9% 1,000 ML IV SCH (05:47)
[2019-05-29] MEDS: Folic Acid/Vit B Comp W-C PO SCH (09:00)
[2019-05-29] MEDS: Calcitriol 0.25 MCG CAP PO SCH (09:00)
[2019-05-29] MEDS: Loratadine 10 MG TAB PO SCH (09:00)
[2019-05-29] MEDS: Calcium Polycarbophil 625 MG TAB PO SCH (09:01)
[2019-05-29] MEDS: Gabapentin 100 MG CAP PO SCH ×2 (09:01→21:31)
[2019-05-29] MEDS: Gentamicin TOPICAL Ointment 0.1% 15 gm Tube TOP SCH (09:04)
--- NOTE | 2019-05-29 09:32 | PDOC.HOSPP ---
- Subjective Encounter Date: 05/29/19 - Objective Vital Signs & Weight: Vital Signs (12 hours) Temp Pulse Resp BP Pulse Ox 05/29/19 08:00 97.5 F L 99 18 117/83 98 05/29/19 03:00 99 F 104 H 18 126/71 100 Weight Admit Weight 250 lb 6.4 oz Weight 250 lb 6.4 oz Most Recent Monitor Data Heart Rate from ECG 98 Respiration from ECG 18 I&O: 05/28/19 05/29/19 05/30/19 06:59 06:59 06:59 Intake Total 1800 1500 Output Total 200 1500 Balance 1600 0 Result Diagrams: 05/29/19 04:21 05/29/19 04:21 Hospitalist ROS - Medication Medications: Active Medications Generic Name Dose Route Start Last Admin Trade Name Freq PRN Reason Stop Dose Admin Acetaminophen 650 mg 05/26/19 11:45 05/26/19 14:32 Tylenol PO 650 mg Q4H PRN Administration Headache/Fever/Mild Pain (1-3) Calcitriol 0.25 mcg 05/27/19 09:00 05/29/19 09:00 Rocaltrol PO 0.25 mcg MWF [facility] Administration Calcium Polycarbophil 1,250 mg 05/27/19 09:00 05/29/19 09:01 Fibercon PO 1,250 mg DAILY [facility] Administration Citalopram Hydrobromide 20 mg 05/26/19 21:00 05/28/19 20:42 Celexa PO 20 mg HS [facility] Administration Gabapentin 100 mg 05/26/19 21:00 05/29/19 09:01 Neurontin PO 100 mg BID [facility] Administration Gentamicin Sulfate 0 gm 05/27/19 09:00 05/29/19 09:04 Garamycin 0.1% Ointment TOP Not Given DAILY [facility] Sodium Chloride 1,000 mls @ 75 mls/hr 05/26/19 11:45 05/29/19 05:47 Normal Saline 0.9% IV 1,000 mls .[id number] [facility] Administration Piperacillin Sod/Tazobactam 100 mls @ 200 mls/hr 05/26/19 15:00 05/29/19 09: 02 Sod 3.375 gm/ Sodium Chloride IVPB 100 mls 0300,0900,1500,2100 [facility] Administration Loratadine 10 mg 05/27/19 09:00 05/29/19 09:00 Claritin PO 10 mg DAILY [facility] Administration Morphine Sulfate 2 mg 05/26/19 15:40 05/27/19 09:00 Morphine SLOW IVP 2 mg Q4H PRN Administration Severe Pain (7-10) Oxycodone HCl 2.5 mg 05/26/19 13:25 05/28/19 00:42 Oxycodone Ir PO 2.5 mg Q6H PRN Administration Severe Pain (7-10) Quetiapine Fumarate 25 mg 05/28/19 21:00 05/28/19 20:42 Seroquel PO 25 mg HS [facility] Administration Valacyclovir HCl 1,000 mg 05/26/19 22:00 05/29/19 05:47 Valtrex PO 1,000 mg Q8HR [facility] Administration Vitamin B Complex/Vit C/Folic Acid 1 tab 05/27/19 07:30 05/29/19 09:00 Nephro-Hiro Tablet PO 1 tab DAILY-AC [facility] Administration Hosp A/P (1) Abdominal pain Code(s): R10.9 - UNSPECIFIED ABDOMINAL PAIN Status: Acute Qualifiers: Abdominal location: generalized Qualified Code(s): R10.84 - Generalized abdominal pain (2) Anemia due to blood loss, acute Code(s): D62 - ACUTE POSTHEMORRHAGIC ANEMIA Status: Acute (3) Hypotension Status: Resolved (4) Hx of essential hypertension Code(s): Z86.79 - PERSONAL HISTORY OF OTHER DISEASES OF THE CIRCULATORY SYSTEM Status: Chronic (5) ESRD on peritoneal dialysis Code(s): N18.6 - END STAGE RENAL DISEASE; Z99.2 - DEPENDENCE ON RENAL DIALYSIS Status: Chronic (6) GERD (gastroesophageal reflux disease) Code(s): K21.9 - GASTRO-ESOPHAGEAL REFLUX DISEASE WITHOUT ESOPHAGITIS Status: Chronic (7) Respiratory failure with hypoxia Code(s): J96.91 - RESPIRATORY FAILURE, UNSPECIFIED WITH HYPOXIA Status: Acute Qualifiers: Chronicity: acute Qualified Code(s): J96.01 - Acute respiratory failure with hypoxia (8) Confusion Code(s): R41.0 - DISORIENTATION, UNSPECIFIED Status: Acute (9) Sepsis due to pneumonia Code(s): J18.9 - PNEUMONIA, UNSPECIFIED ORGANISM; A41.9 - SEPSIS, UNSPECIFIED ORGANISM Status: Acute Plan: Sepsis on admission, now improved, treating pneumonia with antibiotics with normalization of leukocytosis - Plan continue antibiotics, PT/OT Patient transfused 2 units PRBC 05/27, 1 more unit 05/28, blood count now seems to have stabilized suspect active intraabdominal blood loss slowing, general surgery following, hopefully won't need reexploration BP improved, still holding home BP meds Currently on Zosyn CXR with atelectasis from poor inspiration and pneumonia, O2 requirement improving to 2-3L NC Patient with confusion for the past few days, appears to be hospital delirium, a bit better today after Seroquel helped her sleep last night, but still fluctuating. I spoke with her daughter Melody Estrella and updated her. Daughter is caring for her children and her youngest so can't get up here often but would like to be updated daily.
--- NOTE | 2019-05-29 13:21 | PRG ---
DATE OF SERVICE: 05/29/2019 SUBJECTIVE: Patient was seen and examined at bedside and overnight events noted. Patient denies any shortness of breath or chest pain or palpitation. No history of nausea or vomiting or diarrhea or fever or chills or cramps. OBJECTIVE: GENERAL: This is an obese female, in no apparent distress. VITAL SIGNS: Temperature 98.6. Heart rate 104. Respiratory rate 16. Blood pressure 167/80. HEENT: Atraumatic, normocephalic. Oral mucosa is moist. NECK: Supple. CARDIOVASCULAR: S1, S2 heard. Rate and rhythm regular. RESPIRATORY: Clear to auscultation. GASTROINTESTINAL: Abdomen is soft. MUSCULOSKELETAL: No tenderness. No edema. DERMATOLOGIC: No skin rash. NEUROLOGIC: Alert and awake and oriented x3. No focal neurologic deficits. Moving all the extremities. PSYCHIATRIC: Mood and affect normal. LABORATORY DATA: Potassium is 4.0, sodium is 132, BUN is 59, and creatinine is 6.4. ASSESSMENT AND PLAN: 1. End-stage renal disease. We will continue on hemodialysis for now. Plan to have dialysis for 3-1/2 hours today. 2. Concerns for intraabdominal bleed. Follow with surgery. 3. Anemia, seems to be stable. 4. Hyperkalemia. 5. Edema. 6. Hypotension, better. Overall clinically getting better. We will continue on dialysis if tolerated and we will follow. Job ID: [id number]
--- NOTE | 2019-05-29 14:19 | PRG ---
DATE OF SERVICE: 05/29/2019 SUBJECTIVE: Ms. Lima is complaining of abdominal distention and pain mostly in the right lower quadrant. She had hemodialysis today. She is not very hungry, but she denies significant nausea. OBJECTIVE: VITAL SIGNS: Her blood pressure is 167/88, pulse 104, respirations 16, and O2 saturations 93% on room air. ABDOMEN: Distended but not tympanitic. There are occasional bowel sounds. Her wounds are healing well. The catheter is in the right lower quadrant with no infectious drainage. LABORATORY DATA: Hemoglobin today is 7.9. ASSESSMENT: Bleeding in the abdomen status post laparoscopic lysis of adhesions and repositioning of peritoneal dialysis catheter. PLAN: Certainly, she is distended and likely has some component of ileus secondary to this blood. However, she has been hemodynamically stable. I would recommend continue occasional blood transfusions. It appears that her hemoglobin is starting to stabilize. We discussed operative washout, which could be difficult even necessitating a laparotomy which would be more morbidity, so I recommended continue observation for now. I suspect her ileus and bloating will slowly resolve. Job ID: [id number]
--- NOTE | 2019-05-29 14:28 | PQF ---
CLINICAL DOCUMENTATION IMPROVEMENT CLARIFICATION FORM: ICD-10 Updated PLEASE DO AN ADDENDUM TO THE PROGRESS NOTE WITH ANY DOCUMENTATION UPDATES OR ADDITIONS AND CARRY THROUGH TO DC SUMMARY. THANK YOU. DATE: 05/29/19 ATTN: DR. STEPHEN Please exercise your independent, professional judgment in responding to the clarification form. Clinical indicators are provided on the bottom of this form for your review Please check appropriate box(es): [ X ] Sepsis due to: (Pna, UTI, gangrenous gall bladder, etc.) ___Pneumonia____ Due to: [ ] Device (please specify) [ ] Implant [ ] Graft [ ] Infusion [ ] SIRS due to non-infectious process (please specify etiology) [ ] with organ dysfunction [ ] without organ dysfunction [ ] Severe sepsis with acute organ dysfunction of: (Examples: respiratory failure, encephalopathy, acute kidney failure, other) [ ] Septic Shock [ ] Localized infection without sepsis [ ] Other diagnosis [ ] Unable to determine In addition, please specify: Present on Admission (POA): [ X ] Yes [ ] No [ ] Unable to determine For continuity of documentation, please document condition throughout progress notes and discharge summary. Thank You. CLINICAL INDICATORS - SIGNS / SYMPTOMS / LABS / RESULTS AND LOCATION IN MR PULSE 104 BP 84/61 LACTIC ACID 05/26: 2.3 WBC 05/27: 15.2 RISKS: ATELECTASIS VS BIBASILAR PNEUMONIA (H&P 05/26) TREATMENT: ZOSYN (05/26-PRESENT) IV FLUIDS (05/26-05/29) BLOOD AND PERITONEAL FLUID CULTURES (05/26) CARDIAC MONITORING SAP Application Support Intern [employer] Winform Viewer (This form is maintained as a part of the permanent medical record) 2014 [employer]. All Rights Reserved ISHAAN [email or web address] Office: [phone] SYD
[2019-05-29] MEDS: Citalopram 20 MG TAB PO SCH (21:31)
[2019-05-30] MEDS: Piperacillin/Tazobactam 3.375 GM in Sodium Chloride 0.9% 100 ML IVPB SCH ×2 (03:13→09:32)
[2019-05-30] MEDS: valACYclovir 500 MG TAB PO SCH ×3 (05:16→20:31)
[2019-05-30] MEDS: Folic Acid/Vit B Comp W-C PO SCH (09:31)
[2019-05-30] MEDS: Calcium Polycarbophil 625 MG TAB PO SCH (09:31)
[2019-05-30] MEDS: Gentamicin TOPICAL Ointment 0.1% 15 gm Tube TOP SCH (09:31)
[2019-05-30] MEDS: Loratadine 10 MG TAB PO SCH (09:32)
[2019-05-30] MEDS: Gabapentin 100 MG CAP PO SCH ×2 (09:32→20:30)
--- NOTE | 2019-05-30 09:44 | PDOC.GSPN ---
Surgery Progress Note: Subj - Subjective Patient reports: feels better, pain well controlled, tolerating a regular diet Surgery Progress Note: Obj - Vital signs Vital signs: Vital Signs - Most Recent Temp Pulse Resp BP Pulse Ox 98.0 F 95 16 140/77 97 05/30/19 07:47 05/30/19 07:47 05/30/19 07:47 05/30/19 07:47 05/30/19 07:51 - Physical Exam General: no distress Abdomen: soft, appropriately tender, distended Wound: healing well Surgery Progress Note: Results - Labs Result Diagrams: 05/29/19 04:21 05/29/19 04:21 Surgery Progress Note: A/P - Problem (1) Anemia due to blood loss, acute Current Visit: Yes Code(s): D62 - ACUTE POSTHEMORRHAGIC ANEMIA Status: Acute - Plan Plan: POD reposition PD catheter, post op bleeding-stabilized -feels better, tolerated renal diet for breakfast -continue supportive care. -Home in next few days if continues to improve clinically
[2019-05-30] MEDS ORDERED: EPOETIN ALFA-EPBX (ESRD) 10,000 UNIT/ML VIAL SC SCH (13:15)
--- NOTE | 2019-05-30 13:30 | PRG ---
DATE OF SERVICE: 05/30/2019 SUBJECTIVE: Patient was seen and examined at bedside and overnight events noted. Patient denies any shortness of breath or chest pain or palpitation. No history of nausea or vomiting or diarrhea or fever or chills or cramps. OBJECTIVE: GENERAL: This is an obese female, in no apparent distress. VITAL SIGNS: Temperature 98.7. Heart rate 95. Respiratory rate 16. Blood pressure 140/77. HEENT: Atraumatic, normocephalic. Oral mucosa is moist NECK: Supple. CARDIOVASCULAR: S1, S2 heard. Rate and rhythm regular. RESPIRATORY: Clear to auscultation. GASTROINTESTINAL: Abdomen is soft. MUSCULOSKELETAL: No tenderness. No edema. DERMATOLOGIC: No skin rash. NEUROLOGIC: Alert and awake and oriented X3. No focal neurologic deficits. Moving all the extremities. PSYCHIATRIC: Mood and affect normal. LABORATORY DATA: Potassium is 4.0, BUN is 59, creatinine is 6.4. ASSESSMENT AND PLAN: 1. End-stage renal disease. Currently, on hemodialysis. Status post revision of PD catheter. 2. Concerns for intraabdominal bleed. Seems like getting stable. 3. Anemia, stable. We will monitor. Clinically stable. 4. Hyperkalemia, better. 5. Edema. 6. Hypertension, also better. Overall clinically, she seems to be getting better, blood pressure is better, anemia is stable, and the patient is feeling also better. Plan is to have dialysis as tolerated. Most likely, we will continue Saturday, Saturday, and Saturday, then follow with Surgery before further use of PD catheter. Seems like we may have to wait for 1 to 2 more weeks before we can use PD catheter. The patient is already set up as outpatient for hemodialysis at our clinic, so no further plans need to be made for disposition regarding outpatient dialysis at this point. We will follow up. Job ID: [id number]
--- NOTE | 2019-05-30 14:50 | PDOC.HOSPP ---
- Subjective Encounter Date: 05/30/19 (f/u post-op bleeding) Encounter Time: 14:47 Subjective: Pt today reports feeling tired, but better. Able to eat today. Reports the abdominal bloating is mild and does not need pain meds. Reports a normal bm - Objective Vital Signs & Weight: Vital Signs (12 hours) Temp Pulse Resp BP Pulse Ox 05/30/19 07:51 97 05/30/19 07:47 98.0 F 95 16 140/77 97 05/30/19 04:00 98.3 F 101 H 17 139/66 92 L Weight Admit Weight 250 lb 6.4 oz Weight 250 lb 6.4 oz Most Recent Monitor Data Heart Rate from ECG 98 Respiration from ECG 18 I&O: 05/29/19 05/30/19 05/31/19 06:59 06:59 06:59 Intake Total 1500 540 Output Total 1500 3400 Balance 0 -2860 Result Diagrams: 05/29/19 04:21 05/29/19 04:21 EKG Reviewed by me: Yes (tele - sinus 90's, pvc and pac) Hospitalist ROS - Medication Medications: Active Medications Generic Name Dose Route Start Last Admin Trade Name Freq PRN Reason Stop Dose Admin Acetaminophen 650 mg 05/26/19 11:45 05/26/19 14:32 Tylenol PO 650 mg Q4H PRN Administration Headache/Fever/Mild Pain (1-3) Calcitriol 0.25 mcg 05/27/19 09:00 05/29/19 09:00 Rocaltrol PO 0.25 mcg MWF [facility] Administration Calcium Polycarbophil 1,250 mg 05/27/19 09:00 05/30/19 09:31 Fibercon PO 1,250 mg DAILY [facility] Administration Citalopram Hydrobromide 20 mg 05/26/19 21:00 05/29/19 21:31 Celexa PO 20 mg HS [facility] Administration Gabapentin 100 mg 05/26/19 21:00 05/30/19 09:32 Neurontin PO 100 mg BID [facility] Administration Gentamicin Sulfate 0 gm 05/27/19 09:00 05/30/19 09:31 Garamycin 0.1% Ointment TOP Not Given DAILY [facility] Piperacillin Sod/Tazobactam 100 mls @ 200 mls/hr 05/26/19 15:00 05/30/19 09: 32 Sod 3.375 gm/ Sodium Chloride IVPB 100 mls 0300,0900,1500,2100 [facility] Administration Loratadine 10 mg 05/27/19 09:00 05/30/19 09:32 Claritin PO Not Given DAILY [facility] Morphine Sulfate 2 mg 05/26/19 15:40 05/27/19 09:00 Morphine SLOW IVP 2 mg Q4H PRN Administration Severe Pain (7-10) Oxycodone HCl 2.5 mg 05/26/19 13:25 05/28/19 00:42 Oxycodone Ir PO 2.5 mg Q6H PRN Administration Severe Pain (7-10) Quetiapine Fumarate 25 mg 05/28/19 21:00 05/29/19 21:31 Seroquel PO 25 mg HS [facility] Administration Valacyclovir HCl 1,000 mg 05/26/19 22:00 05/30/19 05:16 Valtrex PO Not Given Q8HR [facility] Vitamin B Complex/Vit C/Folic Acid 1 tab 05/27/19 07:30 05/30/19 09:31 Nephro-Hiro Tablet PO 1 tab DAILY-AC [facility] Administration - Exam General Appearance: NAD Heart: RRR, no murmur Respiratory: CTAB, no wheezes, no rales, no ronchi Gastrointestinal: soft, non-tender, normal bowel sounds Extremities - other findings: ecchymosis along left arm Psychiatric: normal affect Hosp A/P (1) Abdominal pain Code(s): R10.9 - UNSPECIFIED ABDOMINAL PAIN Status: Acute Qualifiers: Abdominal location: generalized Qualified Code(s): R10.84 - Generalized abdominal pain (2) Anemia due to blood loss, acute Code(s): D62 - ACUTE POSTHEMORRHAGIC ANEMIA Status: Acute (3) Confusion Code(s): R41.0 - DISORIENTATION, UNSPECIFIED Status: Acute (4) Respiratory failure with hypoxia Code(s): J96.91 - RESPIRATORY FAILURE, UNSPECIFIED WITH HYPOXIA Status: Resolved Qualifiers: Chronicity: acute Qualified Code(s): J96.01 - Acute respiratory failure with hypoxia (5) GERD (gastroesophageal reflux disease) Code(s): K21.9 - GASTRO-ESOPHAGEAL REFLUX DISEASE WITHOUT ESOPHAGITIS Status: Chronic Qualifiers: Esophagitis presence: esophagitis presence not specified Qualified Code(s) : K21.9 - Gastro-esophageal reflux disease without esophagitis (6) Hx of essential hypertension Code(s): Z86.79 - PERSONAL HISTORY OF OTHER DISEASES OF THE CIRCULATORY SYSTEM Status: Chronic (7) ESRD on peritoneal dialysis Code(s): N18.6 - END STAGE RENAL DISEASE; Z99.2 - DEPENDENCE ON RENAL DIALYSIS Status: Chronic - Plan Pt appears improved - appreciate Gen Surgery consult - monitor appreciate Nephrology consult - Fistula study with IR - scheduled for Saturday - continue dialysis cultures reviewed and negative - will d/c zosyn continue current home meds - add back low-dose carvedilol (lower than home dose) as bp's are normal and pulse 90-100's - add back PPI recheck cbc today and schedule this daily to monitor pt/ot dvt prophy - scd's gi prophy - not indictaed, taking PO code status full reviewed plan of care with patient and daughter by phone, no questions or further needs at end of eval. pt remains at high risk in current condition
[2019-05-30 15:59] LABS: Hemoglobin 8.4 g/dL (12.0-16.0); Mean Corpuscular HGB CONC 35.1 g/dL (32.0-36.0); Mean Corpuscular Hemoglobin 33.4 pg (27.0-31.0); Mean Corpuscular Volume 95.3 fL (78.0-98.0); Mean Platelet Volume 5.8 fL (7.4-10.4); Platelet Count 131 thou/uL (130-400); RBC Distribution Width 16.1 % (11.5-14.5); Red Blood Cell (RBC) Count 2.51 mill/uL (4.20-5.40)
[2019-05-30 16:22] LABS: Anisocytosis SLIGHT = 6-15 cells (100X) (0-5/hpf); Eosinophils 4 % (0-10); Lymphocytes 32 % (21-51); MDiff Complete? YES; Monocytes 8 % (0-10); Neutrophil 56 % (42-75); Platelet Morphology Comment Appears Adequate; Polychromasia SLIGHT = 2-3 cells (100X) (0-2/hpf)
[2019-05-30] MEDS: Carvedilol 3.125 MG TAB PO SCH (17:26)
[2019-05-30] MEDS: Citalopram 20 MG TAB PO SCH (20:30)
[2019-05-31 05:00] LABS: #Eosinphils 0.4 thou/uL (0.0-0.7); #Lymphocytes 1.8 thou/uL (1.20-3.40); #Monocytes 0.7 thou/uL (0.11-0.59); %Basophils 0.5 % (0.0-1.0); %Eosinophils 6.8 % (0.0-10.0); %Lymphocytes 30.1 % (21.0-51.0); %Monocytes 12.5 % (0.0-10.0); Hemoglobin 8.6 g/dL (12.0-16.0); Mean Corpuscular HGB CONC 34.7 g/dL (32.0-36.0); Mean Corpuscular Volume 97.9 fL (78.0-98.0); Mean Platelet Volume 6.9 fL (7.4-10.4); Platelet Count 151 thou/uL (130-400); RBC Distribution Width 16.2 % (11.5-14.5); Red Blood Cell (RBC) Count 2.53 mill/uL (4.20-5.40); White Blood Cell (WBC) Count 5.9 thou/uL (4.8-10.8)
[2019-05-31 05:20] LABS: Anion Gap 17 mmol/L (10-20); BUN (Urea Nitrogen) 44 mg/dL (9.8-20.1); Calc. Creatinine Clearance 22 mL/min (70-130); Calcium 8.5 mg/dL (7.8-10.44); Carbon Dioxide 21 mmol/L (22-29); Chloride 105 mmol/L (98-107); Estimated GFR-MDRD 9; Glucose 91 mg/dL (70-105); Potassium 3.7 mmol/L (3.5-5.1); Sodium 139 mmol/L (136-145)
[2019-05-31] MEDS: valACYclovir 500 MG TAB PO SCH ×3 (05:39→22:22)
[2019-05-31] MEDS: Acetaminophen 325 MG TAB PO PRN ×2 (06:50→17:34)
[2019-05-31] MEDS: Carvedilol 3.125 MG TAB PO SCH (08:47)
[2019-05-31] MEDS: Folic Acid/Vit B Comp W-C PO SCH (08:47)
[2019-05-31] MEDS: Gabapentin 100 MG CAP PO SCH ×2 (08:48→20:09)
[2019-05-31] MEDS: Gentamicin TOPICAL Ointment 0.1% 15 gm Tube TOP SCH (08:48)
[2019-05-31] MEDS: Calcium Polycarbophil 625 MG TAB PO SCH (08:48)
[2019-05-31] MEDS: Loratadine 10 MG TAB PO SCH (08:48)
[2019-05-31] MEDS ORDERED: Carvedilol 6.25 MG TAB PO SCH (11:00)
--- NOTE | 2019-05-31 11:20 | PDOC.HOSPP ---
- Subjective Encounter Date: 05/31/19 (f/u anemia) Encounter Time: 11:17 Subjective: Pt reports her breathing is improved today. Does have abdominal fullness. Having loose stools with each meal. Denies any other new sx or concerns. - Objective Vital Signs & Weight: Vital Signs (12 hours) Temp Pulse Resp BP Pulse Ox 05/31/19 07:39 97 05/31/19 07:38 98.2 F 85 17 161/78 H 97 05/31/19 03:13 98.4 F 88 162/88 H 94 L Weight Admit Weight 250 lb 6.4 oz Weight 250 lb 6.4 oz Most Recent Monitor Data Heart Rate from ECG 98 Respiration from ECG 18 I&O: 05/30/19 05/31/19 06/01/19 06:59 06:59 06:59 Intake Total 540 930 Output Total 3400 1000 Balance -2860 -70 Result Diagrams: 05/31/19 04:37 05/31/19 04:37 EKG Reviewed by me: Yes (tele - sinus 80's, 16 beats MAT) Hospitalist ROS - Medication Medications: Active Medications Generic Name Dose Route Start Last Admin Trade Name Freq PRN Reason Stop Dose Admin Acetaminophen 650 mg 05/26/19 11:45 05/31/19 06:50 Tylenol PO 650 mg Q4H PRN Administration Headache/Fever/Mild Pain (1-3) Calcitriol 0.25 mcg 05/27/19 09:00 05/29/19 09:00 Rocaltrol PO 0.25 mcg MWF [facility] Administration Calcium Polycarbophil 1,250 mg 05/27/19 09:00 05/31/19 08:48 Fibercon PO Not Given DAILY [facility] Citalopram Hydrobromide 20 mg 05/26/19 21:00 05/30/19 20:30 Celexa PO 20 mg HS [facility] Administration Epoetin Jevon-epbx 10,000 unit 05/30/19 13:15 05/30/19 14:59 Retacrit SC 10,000 unit Q7D [facility] Administration Gabapentin 100 mg 05/26/19 21:00 05/31/19 08:48 Neurontin PO 100 mg BID [facility] Administration Gentamicin Sulfate 0 gm 05/27/19 09:00 05/31/19 08:48 Garamycin 0.1% Ointment TOP Not Given DAILY [facility] Loratadine 10 mg 05/27/19 09:00 05/31/19 08:48 Claritin PO Not Given DAILY [facility] Morphine Sulfate 2 mg 05/26/19 15:40 05/27/19 09:00 Morphine SLOW IVP 2 mg Q4H PRN Administration Severe Pain (7-10) Oxycodone HCl 2.5 mg 05/26/19 13:25 05/28/19 00:42 Oxycodone Ir PO 2.5 mg Q6H PRN Administration Severe Pain (7-10) Pantoprazole Sodium 40 mg 05/31/19 09:00 05/31/19 08:48 Protonix PO 40 mg DAILY [facility] Administration Quetiapine Fumarate 25 mg 05/28/19 21:00 05/30/19 20:30 Seroquel PO 25 mg HS [facility] Administration Valacyclovir HCl 1,000 mg 05/26/19 22:00 05/31/19 05:39 Valtrex PO Not Given Q8HR [facility] Vitamin B Complex/Vit C/Folic Acid 1 tab 05/27/19 07:30 05/31/19 08:47 Nephro-Hiro Tablet PO 1 tab DAILY-AC [facility] Administration - Exam General Appearance: NAD Heart: RRR, no murmur Respiratory: CTAB, no wheezes, no rales, no ronchi Gastrointestinal: soft, non-tender, normal bowel sounds Extremities: no cyanosis, no clubbing, no edema Musculoskeletal: normal tone Psychiatric: normal affect Hosp A/P (1) Abdominal pain Code(s): R10.9 - UNSPECIFIED ABDOMINAL PAIN Status: Acute Qualifiers: Abdominal location: generalized Qualified Code(s): R10.84 - Generalized abdominal pain (2) Anemia due to blood loss, acute Code(s): D62 - ACUTE POSTHEMORRHAGIC ANEMIA Status: Acute (3) Confusion Code(s): R41.0 - DISORIENTATION, UNSPECIFIED Status: Acute (4) Respiratory failure with hypoxia Code(s): J96.91 - RESPIRATORY FAILURE, UNSPECIFIED WITH HYPOXIA Status: Resolved Qualifiers: Chronicity: acute Qualified Code(s): J96.01 - Acute respiratory failure with hypoxia (5) GERD (gastroesophageal reflux disease) Code(s): K21.9 - GASTRO-ESOPHAGEAL REFLUX DISEASE WITHOUT ESOPHAGITIS Status: Chronic Qualifiers: Esophagitis presence: esophagitis presence not specified Qualified Code(s) : K21.9 - Gastro-esophageal reflux disease without esophagitis (6) Hx of essential hypertension Code(s): Z86.79 - PERSONAL HISTORY OF OTHER DISEASES OF THE CIRCULATORY SYSTEM Status: Chronic (7) ESRD on peritoneal dialysis Code(s): N18.6 - END STAGE RENAL DISEASE; Z99.2 - DEPENDENCE ON RENAL DIALYSIS Status: Chronic - Plan Pt appears improved - appreciate Gen Surgery consult - monitor appreciate Nephrology consult - Fistula study with IR - scheduled for tomorrow - continue dialysis (hemo) and plan with Dr. Nunez when to use the peritoneal catheter cultures reviewed and negative - zosyn d/c yesterday, confirmed with Dr. Neely and Dr. Patel prior to d/c loose stools - check C Diff continue current home meds MAT and elevated pressures - increase carvedilol back to home dose. - pt also on hydralazine and isosorbide at home - add these back if pressures remain elevated continue to monitor cbc - hb has been stable pt/ot dvt prophy - scd's and ambulatory gi prophy - not indicated, taking PO code status full reviewed plan of care with patient and daughter by phone, no questions or further needs at end of eval. pt remains at high risk in current condition
--- NOTE | 2019-05-31 14:51 | PRG ---
DATE OF SERVICE: 05/31/2019 SUBJECTIVE: Patient was seen and examined at bedside and overnight events noted. Patient denies any shortness of breath or chest pain or palpitation. No history of nausea or vomiting or diarrhea or fever or chills or cramps. OBJECTIVE: GENERAL: This is an obese female, in no apparent distress. VITAL SIGNS: Temperature 98.7. Heart rate 80. Respiratory rate 20. Blood pressure 130/63. HEENT: Atraumatic, normocephalic. Oral mucosa is moist NECK: Supple. CARDIOVASCULAR: S1, S2 heard. Rate and rhythm regular. RESPIRATORY: Clear to auscultation. GASTROINTESTINAL: Abdomen is soft. MUSCULOSKELETAL: No tenderness. No edema. DERMATOLOGIC: No skin rash. NEUROLOGIC: Alert and awake and oriented X3. No focal neurologic deficits. Moving all the extremities. PSYCHIATRIC: Mood and affect normal. LABORATORY DATA: Potassium 3.7, BUN is 44, creatinine is 5.1. ASSESSMENT AND PLAN: 1. End-stage renal disease, currently on dialysis as tolerated. Plan is to continue on hemodialysis. We will recheck with Dr. Nunez in the morning about when to use the peritoneal dialysis catheter. 2. Intraabdominal bleed, seems to be stable. 3. Anemia. 4. Hyperkalemia. 5. Edema. 6. Hypertension. 7. Continue to monitor closely. We will continue on dialysis as tolerated. Job ID: [id number]
[2019-05-31] MEDS: Carvedilol 6.25 MG TAB PO SCH (20:09)
[2019-05-31] MEDS: Citalopram 20 MG TAB PO SCH (20:10)
[2019-06-01 04:51] LABS: #Eosinphils 0.4 thou/uL (0.0-0.7); #Lymphocytes 2.1 thou/uL (1.20-3.40); #Neutrophils 3.2 thou/uL (1.40-6.50); %Basophils 0.7 % (0.0-1.0); %Eosinophils 6.6 % (0.0-10.0); %Lymphocytes 30.8 % (21.0-51.0); %Monocytes 14.3 % (0.0-10.0); %Neutrophils 47.6 % (42.0-75.0); Hemoglobin 8.9 g/dL (12.0-16.0); Mean Corpuscular HGB CONC 34.8 g/dL (32.0-36.0); Mean Corpuscular Hemoglobin 33.7 pg (27.0-31.0); Mean Platelet Volume 6.2 fL (7.4-10.4); Platelet Count 155 thou/uL (130-400); RBC Distribution Width 16.3 % (11.5-14.5); Red Blood Cell (RBC) Count 2.62 mill/uL (4.20-5.40); White Blood Cell (WBC) Count 6.6 thou/uL (4.8-10.8)
[2019-06-01] MEDS: valACYclovir 500 MG TAB PO SCH ×3 (05:06→20:58)
[2019-06-01 05:16] LABS: Anion Gap 15 mmol/L (10-20); BUN (Urea Nitrogen) 52 mg/dL (9.8-20.1); Calc. Creatinine Clearance 21 mL/min (70-130); Calcium 8.5 mg/dL (7.8-10.44); Carbon Dioxide 22 mmol/L (22-29); Chloride 105 mmol/L (98-107); Estimated GFR-MDRD 8; Glucose 92 mg/dL (70-105); Potassium 3.3 mmol/L (3.5-5.1); Sodium 139 mmol/L (136-145)
[2019-06-01] MEDS ORDERED: Sterile Water 10 ML VIAL FS SCH (06:43)
[2019-06-01] MEDS ORDERED: Activase 2 MG VIAL CATH SCH (06:43)
--- NOTE | 2019-06-01 07:53 | PDOC.HOSPP ---
- Subjective Encounter Date: 06/01/19 Encounter Time: 11:30 Subjective: Patient seen in dialysis. Stomach pain much better. Just mild when gets up and moves around. Still quite bloated. No more confusion - Objective Vital Signs & Weight: Vital Signs (12 hours) Temp Pulse Resp BP BP Pulse Ox 06/01/19 07:37 98.1 F 74 16 149/69 H 98 06/01/19 04:00 98.1 F 82 16 123/66 92 L 05/31/19 20:09 166/76 H 05/31/19 20:00 99.7 F H 86 18 160/76 H 98 Weight Admit Weight 250 lb 6.4 oz Weight 246 lb 9.6 oz Most Recent Monitor Data Heart Rate from ECG 98 Respiration from ECG 18 I&O: 05/31/19 06/01/19 06/02/19 06:59 06:59 06:59 Intake Total 930 1240 Output Total 1000 350 Balance -70 890 Result Diagrams: 06/01/19 04:25 06/01/19 04:25 Hospitalist ROS - Review of Systems Constitutional: denies: fever, chills Respiratory: denies: cough, dry, shortness of breath Cardiovascular: denies: chest pain, palpitations Gastrointestinal: reports: abdominal pain. denies: nausea, vomiting Genitourinary: denies: dysuria, hematuria - Medication Medications: Active Medications Generic Name Dose Route Start Last Admin Trade Name Freq PRN Reason Stop Dose Admin Acetaminophen 650 mg 05/26/19 11:45 05/31/19 17:34 Tylenol PO 650 mg Q4H PRN Administration Headache/Fever/Mild Pain (1-3) Calcitriol 0.25 mcg 05/27/19 09:00 05/29/19 09:00 Rocaltrol PO 0.25 mcg MWF [facility] Administration Calcium Polycarbophil 1,250 mg 05/27/19 09:00 05/31/19 08:48 Fibercon PO Not Given DAILY [facility] Carvedilol 12.5 mg 05/31/19 21:00 05/31/19 20:09 Coreg PO 12.5 mg BID [facility] Administration Citalopram Hydrobromide 20 mg 05/26/19 21:00 05/31/19 20:10 Celexa PO 20 mg HS [facility] Administration Epoetin Jevon-epbx 10,000 unit 05/30/19 13:15 05/30/19 14:59 Retacrit SC 10,000 unit Q7D [facility] Administration Gabapentin 100 mg 05/26/19 21:00 05/31/19 20:09 Neurontin PO 100 mg BID [facility] Administration Gentamicin Sulfate 0 gm 05/27/19 09:00 05/31/19 08:48 Garamycin 0.1% Ointment TOP Not Given DAILY [facility] Loratadine 10 mg 05/27/19 09:00 05/31/19 08:48 Claritin PO Not Given DAILY [facility] Morphine Sulfate 2 mg 05/26/19 15:40 05/27/19 09:00 Morphine SLOW IVP 2 mg Q4H PRN Administration Severe Pain (7-10) Oxycodone HCl 2.5 mg 05/26/19 13:25 05/28/19 00:42 Oxycodone Ir PO 2.5 mg Q6H PRN Administration Severe Pain (7-10) Pantoprazole Sodium 40 mg 05/31/19 09:00 05/31/19 08:48 Protonix PO 40 mg DAILY [facility] Administration Quetiapine Fumarate 25 mg 05/28/19 21:00 05/31/19 20:09 Seroquel PO 25 mg HS [facility] Administration Valacyclovir HCl 1,000 mg 05/26/19 22:00 06/01/19 05:06 Valtrex PO Not Given Q8HR [facility] Vitamin B Complex/Vit C/Folic Acid 1 tab 05/27/19 07:30 05/31/19 08:47 Nephro-Hiro Tablet PO 1 tab DAILY-AC [facility] Administration - Exam General Appearance: NAD Eye: anicteric sclera ENT: moist mucosa Heart: RRR, no murmur, no gallops, no rubs Respiratory: CTAB, no wheezes, no rales, no ronchi Gastrointestinal: soft, normal bowel sounds, no palpable masses, no hepatomegaly , no guarding, no rigidity, distended. negative: diminished bowl sounds, voluntary guarding Gastrointestinal - other findings: moderate TTP worse in RLQ Psychiatric: normal affect, normal behavior, A&O x 3 Hosp A/P (1) Abdominal pain Code(s): R10.9 - UNSPECIFIED ABDOMINAL PAIN Status: Acute Qualifiers: Abdominal location: generalized Qualified Code(s): R10.84 - Generalized abdominal pain (2) Anemia due to blood loss, acute Code(s): D62 - ACUTE POSTHEMORRHAGIC ANEMIA Status: Acute (3) Hypotension Status: Resolved (4) Hx of essential hypertension Code(s): Z86.79 - PERSONAL HISTORY OF OTHER DISEASES OF THE CIRCULATORY SYSTEM Status: Chronic (5) ESRD on peritoneal dialysis Code(s): N18.6 - END STAGE RENAL DISEASE; Z99.2 - DEPENDENCE ON RENAL DIALYSIS Status: Chronic (6) GERD (gastroesophageal reflux disease) Code(s): K21.9 - GASTRO-ESOPHAGEAL REFLUX DISEASE WITHOUT ESOPHAGITIS Status: Chronic Qualifiers: Esophagitis presence: esophagitis presence not specified Qualified Code(s) : K21.9 - Gastro-esophageal reflux disease without esophagitis (7) Respiratory failure with hypoxia Code(s): J96.91 - RESPIRATORY FAILURE, UNSPECIFIED WITH HYPOXIA Status: Resolved Qualifiers: Chronicity: acute Qualified Code(s): J96.01 - Acute respiratory failure with hypoxia (8) Confusion Code(s): R41.0 - DISORIENTATION, UNSPECIFIED Status: Acute (9) Sepsis due to pneumonia Code(s): J18.9 - PNEUMONIA, UNSPECIFIED ORGANISM; A41.9 - SEPSIS, UNSPECIFIED ORGANISM Status: Acute - Plan PT/OT, out of bed/ambulate, DVT proph w/SCDs Hgb stable over the weekend, no need for recurrent surgery BP improved with increased carvedilol, can reintroduce isosorbide, still holding home hydralazine Pneumonia resolved, blood cultures negative antibiotics discontinued without fever or leukocytosis Seroquel has helped with reestablishing sleep pattern and resolving confusion. Loose stools negative for C.diff Fistula study today and plan for use of PHD cath as per Dr. Nunez I spoke with her daughter Melody Estrella and updated her. Daughter is caring for her children and her youngest so can't get up here often but would like to be updated daily. Patient getting near discharge if abdomen continues to improve. Will have PT continue working with her and then see if she is more appropriate to go home with daughter for a couple weeks, of if she will need rehab/SNF first.
[2019-06-01] MEDS ORDERED: Sodium Chloride 0.9% 10 ML ONE ×2 (08:23→09:05)
[2019-06-01] MEDS ORDERED: Famotidine/PF 20 mg/2ml Vial SLOW IVP SCH (08:30)
[2019-06-01] MEDS ORDERED: Hydrocortisone Sod Succ/PF 100 mg/2 ml Vial IVP SCH (08:30)
[2019-06-01] MEDS ORDERED: diphenhydrAMINE 50 MG/ML VIAL IVP SCH (08:30)
[2019-06-01] MEDS ORDERED: Midazolam HCl 2 mg/2 ml Vial ONE (09:04)
[2019-06-01] MEDS: Gentamicin TOPICAL Ointment 0.1% 15 gm Tube TOP SCH (10:08)
--- NOTE | 2019-06-01 10:20 | SPC ---
EXAM: [facility] [place] INTRO CATH DIALY CIRC/AV S PROVIDED CLINICAL HISTORY: End-stage renal disease. Decreased flow rates in the left upper extremity arteriovenous dialysis fist kehinde at dialysis. Questionable clotted fistula. COMPARISON: None TECHNIQUE: After informed consent was obtained, patient was placed on the angiography table in the supine positi on. Patient has reported iodine allergy, and as a result, the patient was premedicated prior to this examination. Versed was utilized for conscious sedation intravenously during the exam; the patie nt was monitored for approximately 30 minutes without complication. Left upper extremity was meticulously prepped and draped in the usual sterile fashion. Skin and subcu taneous tissues were infiltrated with buffered 1% lidocaine for local anesthesia. Utilizing concurrent real time ultrasound guidance, the left basilic vein outflow was accessed utilizing microp uncture technique, and a 5 Croatian introducer sheath was placed. A fistulogram and venogram to the SVC were obtained. Manual compression was applied to the venous outflow in attempt to reflux the lupillo riovenous anastomosis. However, the arteriovenous anastomosis was unable to be refluxed. As result, a blood pressure cuff was applied to the upper arm and inflated to above systolic blood pressure, and contrast was injected which refluxes into the arteriovenous anastomosis. The catheter was removed, and hemostasis was achieved with direct pressure. The patient tolerated the procedure well and without immediate complication. Dry sterile dressing was placed at puncture site. Patient was transported to her hospital room in stable condition. IMPRESSION: 1. Patent left upper extremity arteriovenous dialysis fistula with radial artery to antecubital vein anastomosis with runoff via both the cephalic and basilic veins with preferential flow in the cephalic vein. 2. Arteriovenous anastomosis is difficult to reflux given brisk flow throughout the fistula, but the arteriovenous anastomosis does appear patent.
[2019-06-01] MEDS ORDERED: EPOETIN ALFA-EPBX (ESRD) 10,000 UNIT/ML VIAL IVP SCH (10:30)
[2019-06-01] MEDS ORDERED: Potassium Chloride 20 MEQ TAB PO SCH (12:00)
[2019-06-01] MEDS: Carvedilol 6.25 MG TAB PO SCH ×2 (12:28→20:57)
[2019-06-01] MEDS: Gabapentin 100 MG CAP PO SCH ×2 (12:29→20:58)
--- NOTE | 2019-06-01 12:34 | PRG ---
DATE OF SERVICE: 06/01/2019 SUBJECTIVE: Patient was seen and examined at bedside and overnight events noted. Patient denies any shortness of breath or chest pain or palpitation. No history of nausea or vomiting or diarrhea or fever or chills or cramps. OBJECTIVE: GENERAL: This is a well-built female, in no apparent distress. VITAL SIGNS: Temperature 98.1, pulse 74, respiratory rate 16, and blood pressure 123/66. HEENT: Atraumatic, normocephalic. Oral mucosa is moist NECK: Supple. CARDIOVASCULAR: S1, S2 heard. Rate and rhythm regular. RESPIRATORY: Clear to auscultation. GASTROINTESTINAL: Abdomen is soft. MUSCULOSKELETAL: No tenderness. No edema. DERMATOLOGIC: No skin rash. NEUROLOGIC: Alert and awake and oriented X3. No focal neurologic deficits. Moving all the extremities. PSYCHIATRIC: Mood and affect normal. LABORATORY DATA: Potassium is 3.3, BUN is 52, and creatinine is 5.5. ASSESSMENT AND PLAN: 1. End-stage renal disease. Continue on dialysis as tolerated. 2. Intraabdominal bleed, seems to be stable. 3. Anemia. Monitor hemoglobin. 4. Hyperkalemia. 5. Edema. 6. Hypertension. We will continue on dialysis as tolerated. Job ID: [id number]
[2019-06-01] MEDS: Folic Acid/Vit B Comp W-C PO SCH (15:38)
[2019-06-01] MEDS: Calcitriol 0.25 MCG CAP PO SCH (15:39)
[2019-06-01] MEDS: Calcium Polycarbophil 625 MG TAB PO SCH (15:39)
[2019-06-01] MEDS: Loratadine 10 MG TAB PO SCH (15:39)
[2019-06-01] MEDS: Acetaminophen 325 MG TAB PO PRN (17:37)
[2019-06-01] MEDS: Citalopram 20 MG TAB PO SCH (20:58)
--- NOTE | 2019-06-01 21:39 | PRG ---
DATE OF SERVICE: 06/01/2019 SUBJECTIVE: Melva Lima underwent laparoscopic revision of PD catheter as an outpatient. She returned the next morning and was found to have a low hemoglobin. She has been given 3 to 4 units of blood, but her hemoglobins remained stable over the last 3 days. Her abdominal pain is much better. The patient's PD catheter has not been flushed since placement. The patient in addition has a right antecubital IV, which I will ask them to remove immediately as this should not be placed in the dialysis catheter. She had a successful access of her left arm fistula. This left arm fistula was established in September 2018, perforating branch antecubital vein to the proximal radial artery, outflow cephalic and basilic vein, although cephalic vein was larger. They did do a fistulogram today. Arterial inflow could not be assessed due to the brisk outflow. Outflow via the cephalic and basilic vein was noted. The cephalic vein was of excellent caliber without any significant collaterals. The cephalic vein outflow was compressed. We did retrograde and feel that the basilic vein is appreciated anatomically during the procedure. The cephalic vein is much larger. The patient's abdominal pain is much improved. Hemoglobin has remained stable. OBJECTIVE: LUNGS: Clear to auscultation. CARDIAC: Regular rate and rhythm without murmur or gallop. ABDOMEN: Soft, nontender. PD catheter site healthy. ASSESSMENT AND PLAN: Postoperative bleeding after laparoscopic revision of peritoneal dialysis catheter. Operative intervention was not necessary. We would plan to remove her right AC IV as this should not be placed in a dialysis patient. Hemodialysis, continue left arm fistula. I will ask hemodialysis team to flush her peritoneal dialysis catheter and do this weekly. She can probably try peritoneal dialysis in the future in the next 1 to 2 weeks, but this may not be successful. She had poor volume return in the past. She has adhesions in her pelvis from previous surgery. This may be aggravated by recent hemorrhage intraabdominal, but we will see how this works out clinically in the next few weeks. The patient is going to be discharged home anytime from a Surgery standpoint. Job ID: [id number]
[2019-06-02 05:13] LABS: Anion Gap 13 mmol/L (10-20); BUN (Urea Nitrogen) 39 mg/dL (9.8-20.1); Calc. Creatinine Clearance 27 mL/min (70-130); Calcium 8.6 mg/dL (7.8-10.44); Carbon Dioxide 25 mmol/L (22-29); Chloride 103 mmol/L (98-107); Estimated GFR-MDRD 11; Glucose 91 mg/dL (70-105); Potassium 3.4 mmol/L (3.5-5.1); Sodium 138 mmol/L (136-145)
--- NOTE | 2019-06-02 07:26 | PDOC.HOSPP ---
- Subjective Encounter Date: 06/02/19 Encounter Time: 10:30 Subjective: Patient with marked improvement. Moving around ok without using right arm. Daughter is getting room ready for her at home. Plan for d/c to daughter's house in [place] tomorrow after dialysis. - Objective Vital Signs & Weight: Vital Signs (12 hours) Temp Pulse Resp BP BP Pulse Ox 06/02/19 03:11 99.6 F 80 18 130/73 92 L 06/01/19 20:57 138/84 06/01/19 20:00 98.6 F 82 18 138/84 98 Weight Admit Weight 250 lb 6.4 oz Weight 244 lb Most Recent Monitor Data Heart Rate from ECG 98 Respiration from ECG 18 I&O: 06/01/19 06/02/19 06/03/19 06:59 06:59 06:59 Intake Total 1240 1400 Output Total 350 3080 Balance 890 -1680 Result Diagrams: 06/01/19 04:25 06/02/19 04:26 Hospitalist ROS - Review of Systems Constitutional: denies: fever, chills Respiratory: denies: cough, shortness of breath Cardiovascular: denies: chest pain, palpitations, orthopnea Gastrointestinal: reports: abdominal pain, diarrhea. denies: nausea, vomiting, constipation - Medication Medications: Active Medications Generic Name Dose Route Start Last Admin Trade Name Freq PRN Reason Stop Dose Admin Acetaminophen 650 mg 05/26/19 11:45 06/01/19 17:37 Tylenol PO 650 mg Q4H PRN Administration Headache/Fever/Mild Pain (1-3) Calcitriol 0.25 mcg 05/27/19 09:00 06/01/19 15:39 Rocaltrol PO 0.25 mcg MWF [facility] Administration Calcium Polycarbophil 1,250 mg 05/27/19 09:00 06/01/19 15:39 Fibercon PO 1,250 mg DAILY [facility] Administration Carvedilol 12.5 mg 05/31/19 21:00 06/01/19 20:57 Coreg PO 12.5 mg BID [facility] Administration Citalopram Hydrobromide 20 mg 05/26/19 21:00 06/01/19 20:58 Celexa PO 20 mg HS [facility] Administration Epoetin Jevon-epbx 10,000 unit 06/01/19 10:30 06/01/19 12:29 Retacrit IVP Not Given MoWeFr [facility] Gabapentin 100 mg 05/26/19 21:00 06/01/19 20:58 Neurontin PO 100 mg BID [facility] Administration Gentamicin Sulfate 0 gm 05/27/19 09:00 06/01/19 10:08 Garamycin 0.1% Ointment TOP Not Given DAILY [facility] Loratadine 10 mg 05/27/19 09:00 06/01/19 15:39 Claritin PO Not Given DAILY [facility] Morphine Sulfate 2 mg 05/26/19 15:40 05/27/19 09:00 Morphine SLOW IVP 2 mg Q4H PRN Administration Severe Pain (7-10) Oxycodone HCl 2.5 mg 05/26/19 13:25 05/28/19 00:42 Oxycodone Ir PO 2.5 mg Q6H PRN Administration Severe Pain (7-10) Pantoprazole Sodium 40 mg 05/31/19 09:00 06/01/19 15:39 Protonix PO 40 mg DAILY [facility] Administration Quetiapine Fumarate 25 mg 05/28/19 21:00 06/01/19 20:58 Seroquel PO 25 mg HS [facility] Administration Valacyclovir HCl 1,000 mg 05/26/19 22:00 06/01/19 20:58 Valtrex PO Not Given Q8HR [facility] Vitamin B Complex/Vit C/Folic Acid 1 tab 05/27/19 07:30 06/01/19 15:38 Nephro-Hiro Tablet PO 1 tab DAILY-AC [facility] Administration - Exam General Appearance: NAD Eye: anicteric sclera ENT: moist mucosa Heart: RRR, no murmur, no gallops, no rubs Respiratory: CTAB, no wheezes, no rales, no ronchi Gastrointestinal: soft, normal bowel sounds, no palpable masses, no guarding, no rigidity, distended. negative: voluntary guarding Gastrointestinal - other findings: minimal TTP Musculoskeletal: normal tone, normal strength Psychiatric: normal affect, normal behavior, A&O x 3 Hosp A/P (1) Abdominal pain Code(s): R10.9 - UNSPECIFIED ABDOMINAL PAIN Status: Acute Qualifiers: Abdominal location: generalized Qualified Code(s): R10.84 - Generalized abdominal pain (2) Anemia due to blood loss, acute Code(s): D62 - ACUTE POSTHEMORRHAGIC ANEMIA Status: Acute (3) Hypotension Status: Resolved (4) Hx of essential hypertension Code(s): Z86.79 - PERSONAL HISTORY OF OTHER DISEASES OF THE CIRCULATORY SYSTEM Status: Chronic (5) ESRD on peritoneal dialysis Code(s): N18.6 - END STAGE RENAL DISEASE; Z99.2 - DEPENDENCE ON RENAL DIALYSIS Status: Chronic (6) GERD (gastroesophageal reflux disease) Code(s): K21.9 - GASTRO-ESOPHAGEAL REFLUX DISEASE WITHOUT ESOPHAGITIS Status: Chronic Qualifiers: Esophagitis presence: esophagitis presence not specified Qualified Code(s) : K21.9 - Gastro-esophageal reflux disease without esophagitis (7) Respiratory failure with hypoxia Code(s): J96.91 - RESPIRATORY FAILURE, UNSPECIFIED WITH HYPOXIA Status: Resolved Qualifiers: Chronicity: acute Qualified Code(s): J96.01 - Acute respiratory failure with hypoxia (8) Confusion Code(s): R41.0 - DISORIENTATION, UNSPECIFIED Status: Acute (9) Sepsis due to pneumonia Code(s): J18.9 - PNEUMONIA, UNSPECIFIED ORGANISM; A41.9 - SEPSIS, UNSPECIFIED ORGANISM Status: Acute - Plan out of bed/ambulate Hgb stable over the weekend, no need for recurrent surgery BP improved with increased carvedilol, can reintroduce isosorbide, still holding home hydralazine Pneumonia resolved, blood cultures negative antibiotics discontinued without fever or leukocytosis Seroquel has helped with reestablishing sleep pattern and resolving confusion. Loose stools negative for C.diff Dr. Nunez has cleared patient to d/c from surgical standpoint. Can consider restart PD in 2-3 weeks. Plan to discharge home with HH PT/OT tomorrow after dialysis.
[2019-06-02] MEDS ORDERED: Potassium Chloride 20 MEQ TAB PO SCH ×2 (07:30→13:30)
[2019-06-02] MEDS: valACYclovir 500 MG TAB PO SCH ×3 (07:49→20:47)
[2019-06-02] MEDS: Acetaminophen 325 MG TAB PO PRN ×2 (09:06→14:51)
[2019-06-02] MEDS: Folic Acid/Vit B Comp W-C PO SCH (09:07)
[2019-06-02] MEDS: Carvedilol 6.25 MG TAB PO SCH ×2 (09:08→20:45)
[2019-06-02] MEDS: Loratadine 10 MG TAB PO SCH (09:08)
[2019-06-02] MEDS: Gabapentin 100 MG CAP PO SCH ×2 (09:09→20:46)
[2019-06-02] MEDS: Calcium Polycarbophil 625 MG TAB PO SCH (09:09)
[2019-06-02] MEDS: Gentamicin TOPICAL Ointment 0.1% 15 gm Tube TOP SCH (09:12)
--- NOTE | 2019-06-02 13:36 | PRG ---
DATE OF SERVICE: 06/02/2019 SUBJECTIVE: Patient was seen and examined at bedside and overnight events noted. Patient denies any shortness of breath or chest pain or palpitation. No history of nausea or vomiting or diarrhea or fever or chills or cramps. OBJECTIVE: GENERAL: This is a well-built female, in no apparent distress. VITAL SIGNS: Temperature 98.3. Heart rate 77. Respiratory rate 16. Blood pressure 105/59. HEENT: Atraumatic, normocephalic. Oral mucosa is moist NECK: Supple. CARDIOVASCULAR: S1, S2 heard. Rate and rhythm regular. RESPIRATORY: Clear to auscultation. GASTROINTESTINAL: Abdomen is soft. MUSCULOSKELETAL: No tenderness. No edema. DERMATOLOGIC: No skin rash. NEUROLOGIC: Alert and awake and oriented X3. No focal neurologic deficits. Moving all the extremities. PSYCHIATRIC: Mood and affect normal. LABORATORY DATA: Potassium is 3.4, BUN is 39, and creatinine is 4.2. ASSESSMENT AND PLAN: 1. End-stage renal disease. Plan to continue hemodialysis on Saturday, Saturday, and Saturday. 2. PD catheter issues, plan to flush the PD catheter weekly. 3. Anemia, stable. 4. Hypokalemia, we will replace potassium. 5. Edema, controlled. 6. Hypertension. Plan to replace potassium and continue dialysis as tolerated. Job ID: [id number]
[2019-06-02 14:00] VITALS: BMI 38.2
--- NOTE | 2019-06-02 14:59 | PRG ---
DATE OF SERVICE: 06/02/2019 SUBJECTIVE: Melva Lima is doing well today. She is not having any pain. I have asked the hemodialysis service to flush her peritoneal dialysis catheter. She is not having any abdominal pain. Her bowel function is working well. They have performed a fistulogram and she has good outflow of her cephalic vein fistula and now have been able to access it. Her abdomen is soft and nontender. At this point, the patient is ready for discharge home at anytime. From a surgical standpoint, she can be discharged home and I will see her now as an outpatient in 2 to 3 weeks. Hemoglobin has remained stable. Please call if necessary. Job ID: [id number]
[2019-06-02] MEDS: Citalopram 20 MG TAB PO SCH (20:45)
[2019-06-02] MEDS: Isosorbide Dinitrate 20 MG TAB PO SCH (21:26)
[2019-06-02] MEDS: hydrALAZINE 25 MG TAB PO SCH (21:26)
[2019-06-03] MEDS: Acetaminophen 325 MG TAB PO PRN (03:26)
[2019-06-03] MEDS: valACYclovir 500 MG TAB PO SCH (05:17)
--- NOTE | 2019-06-03 07:38 | PDOC.HOSPP ---
- Subjective Encounter Date: 06/03/19 Encounter Time: 09:00 Subjective: Patient feeling well this AM. Ambulating well. Ready to go home after dialysis. Happy that PD cath was easily flushed this AM. - Objective Vital Signs & Weight: Vital Signs (12 hours) Temp Pulse Resp BP Pulse Ox 06/03/19 03:14 98.4 F 88 18 107/58 L 97 06/02/19 23:34 78 115/60 06/02/19 21:34 85 135/67 Weight Admit Weight 250 lb 6.4 oz Weight 239 lb 10.279 oz Most Recent Monitor Data Heart Rate from ECG 98 Respiration from ECG 18 I&O: 06/02/19 06/03/19 06/04/19 06:59 06:59 06:59 Intake Total 1400 950 Output Total 3080 400 Balance -1680 550 Result Diagrams: 06/01/19 04:25 06/02/19 04:26 Hospitalist ROS - Review of Systems Constitutional: denies: fever, chills Respiratory: denies: cough, dry, shortness of breath Cardiovascular: denies: chest pain, palpitations, orthopnea Gastrointestinal: reports: other (continued loose stools, abdominal soreness improved, just with ambulation). denies: nausea, vomiting, constipation - Medication Medications: Active Medications Generic Name Dose Route Start Last Admin Trade Name Freq PRN Reason Stop Dose Admin Acetaminophen 650 mg 05/26/19 11:45 06/03/19 03:26 Tylenol PO 650 mg Q4H PRN Administration Headache/Fever/Mild Pain (1-3) Calcitriol 0.25 mcg 05/27/19 09:00 06/01/19 15:39 Rocaltrol PO 0.25 mcg MWF [facility] Administration Calcium Polycarbophil 1,250 mg 05/27/19 09:00 06/02/19 09:09 Fibercon PO 1,250 mg DAILY [facility] Administration Carvedilol 12.5 mg 05/31/19 21:00 06/02/19 20:45 Coreg PO 12.5 mg BID [facility] Administration Citalopram Hydrobromide 20 mg 05/26/19 21:00 06/02/19 20:45 Celexa PO 20 mg HS [facility] Administration Epoetin Jevon-epbx 10,000 unit 06/01/19 10:30 06/01/19 12:29 Retacrit IVP Not Given MoWeFr [facility] Gabapentin 100 mg 05/26/19 21:00 06/02/19 20:46 Neurontin PO 100 mg BID [facility] Administration Gentamicin Sulfate 0 gm 05/27/19 09:00 06/02/19 09:12 Garamycin 0.1% Ointment TOP 1 appful DAILY [facility] Administration Hydralazine HCl 37.5 mg 06/02/19 21:00 06/02/19 21:26 Apresoline PO 37.5 mg TID [facility] Administration Isosorbide Dinitrate 20 mg 06/02/19 21:00 06/02/19 21:26 Isordil PO 20 mg TID [facility] Administration Loratadine 10 mg 05/27/19 09:00 06/02/19 09:08 Claritin PO Not Given DAILY [facility] Morphine Sulfate 2 mg 05/26/19 15:40 05/27/19 09:00 Morphine SLOW IVP 2 mg Q4H PRN Administration Severe Pain (7-10) Oxycodone HCl 2.5 mg 05/26/19 13:25 05/28/19 00:42 Oxycodone Ir PO 2.5 mg Q6H PRN Administration Severe Pain (7-10) Pantoprazole Sodium 40 mg 05/31/19 09:00 06/02/19 09:09 Protonix PO 40 mg DAILY [facility] Administration Quetiapine Fumarate 25 mg 05/28/19 21:00 06/02/19 20:46 Seroquel PO 25 mg HS [facility] Administration Valacyclovir HCl 1,000 mg 05/26/19 22:00 06/03/19 05:17 Valtrex PO Not Given Q8HR [facility] Vitamin B Complex/Vit C/Folic Acid 1 tab 05/27/19 07:30 06/02/19 09:07 Nephro-Hiro Tablet PO 1 tab DAILY-AC [facility] Administration - Exam General Appearance: NAD Eye: anicteric sclera ENT: moist mucosa Heart: RRR, no murmur, no gallops, no rubs Respiratory: CTAB, no wheezes, no rales, no ronchi Gastrointestinal: soft, non-distended, normal bowel sounds, no hepatomegaly, no splenomegaly, no guarding, no rigidity Gastrointestinal - other findings: mild TTP Extremities: no cyanosis, no clubbing, no edema Musculoskeletal: normal tone, normal strength, no muscle wasting Hosp A/P (1) Abdominal pain Code(s): R10.9 - UNSPECIFIED ABDOMINAL PAIN Status: Acute Qualifiers: Abdominal location: generalized Qualified Code(s): R10.84 - Generalized abdominal pain (2) Anemia due to blood loss, acute Code(s): D62 - ACUTE POSTHEMORRHAGIC ANEMIA Status: Acute (3) Hypotension Status: Resolved (4) Hx of essential hypertension Code(s): Z86.79 - PERSONAL HISTORY OF OTHER DISEASES OF THE CIRCULATORY SYSTEM Status: Chronic (5) ESRD on peritoneal dialysis Code(s): N18.6 - END STAGE RENAL DISEASE; Z99.2 - DEPENDENCE ON RENAL DIALYSIS Status: Chronic (6) GERD (gastroesophageal reflux disease) Code(s): K21.9 - GASTRO-ESOPHAGEAL REFLUX DISEASE WITHOUT ESOPHAGITIS Status: Chronic Qualifiers: Esophagitis presence: esophagitis presence not specified Qualified Code(s) : K21.9 - Gastro-esophageal reflux disease without esophagitis (7) Respiratory failure with hypoxia Code(s): J96.91 - RESPIRATORY FAILURE, UNSPECIFIED WITH HYPOXIA Status: Resolved Qualifiers: Chronicity: acute Qualified Code(s): J96.01 - Acute respiratory failure with hypoxia (8) Confusion Code(s): R41.0 - DISORIENTATION, UNSPECIFIED Status: Acute (9) Sepsis due to pneumonia Code(s): J18.9 - PNEUMONIA, UNSPECIFIED ORGANISM; A41.9 - SEPSIS, UNSPECIFIED ORGANISM Status: Acute - Plan Hgb stable over the weekend, no need for recurrent surgery BP improved with increased carvedilol, tolerating reintroduced isosorbide/ hydralazine Pneumonia resolved, blood cultures negative antibiotics discontinued without fever or leukocytosis Seroquel has helped with reestablishing sleep pattern and resolving confusion. Give prn at home Loose stools negative for C.diff Dr. Nunez has cleared patient to d/c from surgical standpoint. Can consider restart PD in 2-3 weeks. Plan to discharge home with HH PT/OT today after dialysis.
[2019-06-03 11:36] VITALS: BP 132/69; TEMP 98.2
[2019-06-03] MEDS: Calcium Polycarbophil 625 MG TAB PO SCH (11:38)
[2019-06-03] MEDS: Carvedilol 6.25 MG TAB PO SCH (11:39)
[2019-06-03] MEDS: Folic Acid/Vit B Comp W-C PO SCH (11:39)
[2019-06-03] MEDS: Calcitriol 0.25 MCG CAP PO SCH (11:39)
[2019-06-03] MEDS: hydrALAZINE 25 MG TAB PO SCH (11:40)
[2019-06-03] MEDS: Isosorbide Dinitrate 20 MG TAB PO SCH (11:40)
[2019-06-03] MEDS: Loratadine 10 MG TAB PO SCH (11:41)
[2019-06-03] MEDS: Gabapentin 100 MG CAP PO SCH (11:41)
[2019-06-03] MEDS: Gentamicin TOPICAL Ointment 0.1% 15 gm Tube TOP SCH (11:41)
--- NOTE | 2019-06-03 13:58 | PRG ---
DATE OF SERVICE: 06/03/2019 SUBJECTIVE: Patient was seen and examined at bedside and overnight events noted. Patient denies any shortness of breath or chest pain or palpitation. No history of nausea or vomiting or diarrhea or fever or chills or cramps. OBJECTIVE: GENERAL: This is an obese female, in no apparent distress. VITAL SIGNS: Temperature 98.2. Heart rate 87. Respiratory rate 16. Blood pressure 132/69. HEENT: Atraumatic, normocephalic. Oral mucosa is moist NECK: Supple. CARDIOVASCULAR: S1, S2 heard. Rate and rhythm regular. RESPIRATORY: Clear to auscultation. GASTROINTESTINAL: Abdomen is soft. MUSCULOSKELETAL: No tenderness. No edema. DERMATOLOGIC: No skin rash. NEUROLOGIC: Alert and awake and oriented X3. No focal neurologic deficits. Moving all the extremities. PSYCHIATRIC: Mood and affect normal. LABORATORY DATA: Potassium is 3.4, BUN is 29, and creatinine is 4.2. ASSESSMENT AND PLAN: 1. End-stage renal disease. Continue on hemodialysis as tolerated. We will try to use PD catheter in 1 to 2 years. 2. . 3. History of hypertension. 4. Anemia. 5. Intraabdominal bleed, seems to be stable. 6. Continue dialysis on Saturday, Saturday, Saturday as tolerated. Job ID: [id number]
--- NOTE | 2019-06-04 11:04 | DIS ---
DATE OF ADMISSION: 05/27/2019 DATE OF DISCHARGE: 06/03/2019 PRIMARY CARE PHYSICIAN: Dr. Kelsey Chan. REASON FOR ADMISSION: Severe abdominal pain and anemia. DIAGNOSES AT DISCHARGE: 1. Postsurgical abdominal pain from peritoneal dialysis catheter revision, improved. 2. Anemia due to intraabdominal blood loss, stabilized. 3. Hypotension, resolved. 4. Chronic hypertension. 5. End-stage renal disease, on dialysis. 6. Gastroesophageal reflux disease. 7. Respiratory failure with hypoxia, resolved. 8. Pneumonia with sepsis, resolved. 9. Hospital-acquired delirium, resolved. PROCEDURES: 1. CT of the abdomen and pelvis without contrast showing small pockets of intraluminal free air as well as free air in the ventral subcutaneous fat in keeping with patient's history of repositioning of peritoneal dialysis catheter also with free fluid in the abdomen and pelvis. 2. AV shunt angiogram showing a patent left upper extremity AV dialysis fistula that appears patent. CONSULTATIONS: 1. Nephrology, Dr. Neely. 2. General Surgery, Dr. Cam for Dr. Nunez. SUMMARY OF HOSPITAL COURSE: This is a 53-year-old white female with medical history of end-stage renal disease attempting peritoneal dialysis. She recently had trouble with the peritoneal dialysis catheter and had a laparoscopic revision of it the day before admission. There were extensive adhesion lysed during this procedure. She started developing severe abdominal pain after she got home from the procedure. She also had some shortness of breath and chest congestion. She was seen in the emergency room. It was noticed that her hemoglobin dropped from 11 to 9. She was given IV pain medications. Cultures were done and she was admitted to the floor. She had further drop in her blood counts and had it transfused over the next few days. Her hemoglobin continued to drop and she had to be transfused a couple of times. Eventually, the drop in hemoglobin stopped and so she did not end up needing repeat surgery. She had an elevated white blood cell count and lactate initially and she was put on IV antibiotics. She also had evidence of a possible bibasilar pneumonia along with shortness of breath and a drop in her oxygen saturation. She was given IV antibiotics for this and the pneumonia resolved. During the course of hospitalization her leukocytosis resolved as well and she was able to be taken off antibiotics. The patient's abdominal pain slowly improved over the course of hospitalization. Her hemoglobin remained stable and she is being discharged home to stay with her daughter. Home health, physical therapy and occupational therapy was ordered. However, the patient stated that she might end up getting outpatient PT and OT, but did not need home health services at this time. During her hospitalization, the patient did develop some confusion and delirium from being unable to sleep. She was started on nightly Seroquel, at which point, she was able to sleep well at night and had complete clearing of her altered mental status . ACTIVITY: As tolerated. DIET: Healthy heart renal diet. DISCHARGE MEDICATIONS: 1. Seroquel 25 mg at night as needed for insomnia, 14 tabs dispensed. 2. Acetaminophen as needed. 3. Calcitriol 0.25 mcg Saturday, Saturday, and Saturday. 4. Fiber tablets 1250 mg daily. 5. Carvedilol 12.5 mg twice a day. 6. Citalopram 20 mg at night. 7. Fexofenadine 60 mg daily. 8. Karey-Hiro tablet 0.8 mg daily. 9. Gabapentin 100 mg twice a day. 10. Gentamicin ointment applied daily. 11. Isosorbide/hydralazine 20/37.5 mg one tablet 3 times a day. 12. Protonix 40 mg daily. 13. Valtrex 1 g three times a day. 14. Vascepa 1 g twice a day. 15. Triamcinolone cream applied topically as needed. TIME SPENT: Arranging the details of this discharge took 35 minutes. Job ID: [id number]
== END 2019-06-03 14:31 | disposition home health service (06) | DRG 871 ==
LOC: ERS 07:35 → 2NO 12:22 → OBSVTOIN 05-27 17:28
PROVIDERS: ADMIT Internal Medicine; ATTEND Internal Medicine
PROC: B31N1ZZ Fluoroscopy of Other Upper Arteries using Low Osmolar Contrast (ICD-10-PCS; principal; 2019-06-01)
DX: A41.9 Sepsis, unspecified organism (principal); N18.6 End stage renal disease; J18.9 Pneumonia, unspecified organism; J96.01 Acute respiratory failure with hypoxia; D62 Acute posthemorrhagic anemia; I12.0 Hypertensive chronic kidney disease with stage 5 chronic kidney disease or end stage renal disease; T85.838A Hemorrhage due to other internal prosthetic devices, implants and grafts, initial encounter; I95.9 Hypotension, unspecified; Y83.9 Surgical procedure, unspecified as the cause of abnormal reaction of the patient, or of later complication, without mention of misadventure at the time of the procedure; K21.9 Gastro-esophageal reflux disease without esophagitis; R41.0 Disorientation, unspecified; E78.5 Hyperlipidemia, unspecified; E66.01 Morbid (severe) obesity due to excess calories; E87.5 Hyperkalemia; D63.1 Anemia in chronic kidney disease; Z90.710 Acquired absence of both cervix and uterus; Z88.2 Allergy status to sulfonamides; Z88.8 Allergy status to other drugs, medicaments and biological substances; Z59.0 Homelessness
CPT/HCPCS: 36415; 36430; 36901; 71045; 74176; 80048; 80053; 82550; 83605; 83690; 83880; 84484; 85025; 85027; 85610; 85730; 86850; 86900; 86901; 87040; 87070; 87205; 87324; 87340; 87449; 90935; 93005; 94760; 96374; 96375; G0257; J0171; J0690; J1644; J2001; J2250; J2270; J2405; J2543; J3010; J3490; P9016; Q5105; S0020

== ENCOUNTER 2019-06-23 12:16 | Day surgery (SDC) | payer BC, MEDICARE ==
[2019-06-22 14:03] VITALS: BMI 16.0
[2019-06-23 13:47] LABS: #Basophils 0.1 thou/uL (0.0-0.2); #Eosinphils 0.3 thou/uL (0.0-0.7); #Lymphocytes 2.9 thou/uL (1.20-3.40); #Monocytes 0.6 thou/uL (0.11-0.59); #Neutrophils 2.8 thou/uL (1.40-6.50); %Basophils 1.2 % (0.0-1.0); %Eosinophils 3.8 % (0.0-10.0); %Lymphocytes 43.9 % (21.0-51.0); %Neutrophils 42.1 % (42.0-75.0); Anion Gap 14 mmol/L (10-20); BUN (Urea Nitrogen) 28 mg/dL (9.8-20.1); Calc. Creatinine Clearance 11 mL/min (70-130); Calcium 9.7 mg/dL (7.8-10.44); Carbon Dioxide 32 mmol/L (22-29); Chloride 98 mmol/L (98-107); Estimated GFR-MDRD 10; Glucose 97 mg/dL (70-105); Hemoglobin 11.5 g/dL (12.0-16.0); Mean Corpuscular HGB CONC 32.5 g/dL (32.0-36.0); Mean Corpuscular Hemoglobin 31.5 pg (27.0-31.0); Mean Platelet Volume 6.7 fL (7.4-10.4); Platelet Count 205 thou/uL (130-400); Potassium 3.7 mmol/L (3.5-5.1); RBC Distribution Width 14.7 % (11.5-14.5); Red Blood Cell (RBC) Count 3.66 mill/uL (4.20-5.40); Sodium 140 mmol/L (136-145); White Blood Cell (WBC) Count 6.6 thou/uL (4.8-10.8)
[2019-06-23] MEDS ORDERED: Lidocaine 1% w/Epinephrine 1:100K 20 ML VIAL ONE (14:36)
[2019-06-23] MEDS ORDERED: Bupivacaine 0.25% HCL 30 ML VIAL ONE (14:36)
[2019-06-23] MEDS ORDERED: Fentanyl 100 MCG/2 ML VIAL ONE (14:38)
[2019-06-23] MEDS ORDERED: Propofol 1,000 MG/100 ML VIAL IV ONE (15:45)
[2019-06-23] MEDS ORDERED: HYDROcodone/Acetaminophen 5/325 mg Tablet ONE (16:14)
--- NOTE | 2019-06-23 18:16 | OP ---
DATE OF PROCEDURE: 06/23/2019 PREOPERATIVE DIAGNOSES: End-stage renal disease, dysfunctional peritoneal dialysis catheter, and functioning left upper arm fistula. POSTOPERATIVE DIAGNOSES: End-stage renal disease, dysfunctional peritoneal dialysis catheter, and functioning left upper arm fistula. PROCEDURE PERFORMED: Removal of peritoneal dialysis catheter. ANESTHESIA: Intravenous sedation local 0.5% Marcaine 30 mL mixed with 1% Xylocaine with epinephrine 20 mL. DESCRIPTION OF PROCEDURE: The patient was taken to the operating room, where under intravenous sedation, abdomen and PD catheter prepared with ChloraPrep and draped in routine fashion. Local anesthetic was infiltrated in the skin and subcutaneous tissue. The PD catheter and both cuffs dissected free, extracted, and discarded. Wound left open and gauze superficial packing applied and the patient tolerated the procedure well without complications. Job ID: [id number]
== END 2019-06-23 16:45 | disposition home or self-care (01) ==
LOC: SDC 12:16
PROVIDERS: ATTEND Specialist
PROC: 0XP Anatomical Regions, Upper Extremities, Removal (ICD-10-PCS; principal; 2019-06-23)
DX: T82.41XA Breakdown (mechanical) of vascular dialysis catheter, initial encounter (principal); I11.0 Hypertensive heart disease with heart failure; N18.6 End stage renal disease; Z88.2 Allergy status to sulfonamides; Z88.8 Allergy status to other drugs, medicaments and biological substances; Z91.041 Radiographic dye allergy status
CPT/HCPCS: 36415; 80048; 85025; 93005; 93010; J0690; J2704; J3010; S0020

== ENCOUNTER 2021-02-28 18:30 | Outpatient (CLI) | payer BC, MEDICARE | END 2021-02-28 18:31 | disposition home or self-care (01) | LOC: SLEEPLAB 18:30 | PROVIDERS: ATTEND Family Medicine | DX: G47.33 Obstructive sleep apnea (adult) (pediatric) (principal); R53.83 Other fatigue; R51.9 Headache, unspecified; R06.83 Snoring; E66.9 Obesity, unspecified; K21.9 Gastro-esophageal reflux disease without esophagitis; I12.0 Hypertensive chronic kidney disease with stage 5 chronic kidney disease or end stage renal disease; N18.6 End stage renal disease; G47.00 Insomnia, unspecified | CPT/HCPCS: 95806 ==

== ENCOUNTER 2021-11-29 12:17 | Outpatient (CLI) | payer BC, MEDICARE | END 2021-11-29 12:18 | disposition home or self-care (01) | LOC: BICMAMMO 12:17 | PROVIDERS: ATTEND Family Medicine | DX: Z12.31 Encounter for screening mammogram for malignant neoplasm of breast (principal) | CPT/HCPCS: 77063; 77067 ==